=== PATIENT | female | born 1950 | race Caucasian/White ===

== ENCOUNTER → 2016-10-02 | Outpatient (CLI) | payer OTHER, MEDICAID | LOC: FIMAGING 14:13 | PROVIDERS: ATTEND Obstetrics & Gynecology | DX: D17.9 Benign lipomatous neoplasm, unspecified (principal) | CPT/HCPCS: 76641; G0204 ==

== ENCOUNTER → 2017-08-04 | Outpatient (CLI) | payer OTHER, MEDICAID | LOC: FIMAGING 15:30 | PROVIDERS: ATTEND Physician Assistant | DX: K57.30 Diverticulosis of large intestine without perforation or abscess without bleeding (principal); K21.9 Gastro-esophageal reflux disease without esophagitis; I25.10 Atherosclerotic heart disease of native coronary artery without angina pectoris ==

== ENCOUNTER 2018-05-19 16:42 | Inpatient (IN) | payer OTHER, MEDICAID ==
[2018-05-19] MEDS ORDERED: NS 500 ML IV ONE (16:51)
--- NOTE | 2018-05-19 16:57 | EDPHY ---
H & P Time Seen by Provider: 05/19/18 16:44 HPI/ROS: CHIEF COMPLAINT: Found down Limitations: The patient is unable to provide any clinical history, history is through EMS HISTORY OF PRESENT ILLNESS: 68 year old female presents after being found down. She was found down by a neighbor, stuck between her bed and the wall. On EMS arrival, she was face down on the floor, with a strong odor of ammonia in the room and feces all over her. Her oxygen cannula was off and was stuck in her hair. It appeared that she had fallen and hit an object on the wall during the fall. She thinks that she has been on the floor for 2 days. Bottles of OxyContin and multiple bottles of stool softeners found adjacent to the patient. Denies fever, cough or recent illness. REVIEW OF SYSTEMS: Unable to obtain - Personal History Tetanus Vaccine Date: < 10 years - Medical/Surgical History Hx Asthma: No Hx Chronic Respiratory Disease: No Hx Diabetes: No Hx Cardiac Disease: No Hx Renal Disease: No Hx Cirrhosis: No Hx Alcoholism: No Hx HIV/AIDS: No Hx Splenectomy or Spleen Trauma: No Other PMH: HX: B KNEE REPLACEMENT, RA, FEMUR FX, HYPOTHYROID, HEP + infection femur - Social History Smoking Status: Former smoker - Physical Exam Exam: General Appearance: Alert, answers some questions appropriately Eyes: Left periorbital ecchymosis, extending to the left the zygoma area, Pupils equal and round, left conjunctival injection and drainage ENT, Mouth: Mucous membranes somewhat dry Neck: Normal inspection Respiratory: Lungs are clear to auscultation anteriorly Cardiovascular: Regular rate and rhythm Gastrointestinal: Abdomen is soft and nontender Neurological: Alert, oriented to person and place, moves all extremities equally and is able to hold all extremities up against gravity, symmetric smile Skin: Warm and dry, feces on buttocks and extending down both legs Extremities: No swelling Psychiatric: Mood and affect normal Constitutional: Initial Vital Signs O2 Sat (%) 96 05/19/18 16:51 O2 Delivery Mode Nasal Cannula O2 (L/minute) 3 Allergies/Adverse Reactions: iv ct contrast Allergy (Uncoded 07/31/17 14:49) respiratory arrest Home Medications: Medication Instructions Recorded Adalimumab [Humira] 40 mg SQ PANCHAL 12/24/12 lamoTRIgine [LamICTAL 100 MG (*)] 100 mg PO BID@,12/24/12 Atorvastatin Calcium [Lipitor 20 20 mg PO HS@9903/13/13 mg (*)] Omeprazole 20 mg PO DAILY@03/13/13 busPIRone HCL [Buspar] 10 mg PO TID@,,03/13/13 Aspirin [Aspirin 81mg (*)] 81 mg PO DAILY@199908/24/13 Calcium Carbonate/Vitamin D3 1 each PO TID@,,08/24/13 [CALCIUM 600 + VIT D TABLET] Cholecalciferol (Vitamin D3) 2,000 unit PO DAILY@08/24/13 [Vitamin D3] LORazepam [Ativan (*)] 2 mg PO BID@,08/24/13 Levothyroxine [Synthroid 200 mcg 200 mcg PO DAILY@08/24/13 (*)] Levothyroxine [Synthroid 25 mcg 25 mcg PO DAILY@08/24/13 (*)] Losartan Potassium [Cozaar 50 mg 50 mg PO BID@,08/24/13 (*)] Metoprolol Succinate Xr [Toprol Xl 100 mg PO BID@,08/24/13 100 mg (*)] Multivitamins [Multivitamin (*)] 1 each PO DAILY@08/24/13 [place]-3/Dha/Epa/Fish Oil [OMEGA-3 3,600 mg PO DAILY@08/24/13 FISH OIL 1,200 MG SFGL] Polyethylene Glycol 3350 [Miralax 17 gm PO BID@,08/24/13 17 gm (*)] QUEtiapine FUMARATE [Seroquel 300 mg PO HS@9908/24/13 300mg (*)] QUEtiapine FUMARATE [Seroquel 450 mg PO DAILY@199908/24/13 300mg (*)] Sennosides/Docusate Sodium 3 tab PO BID@,08/24/13 [Senokot-S] Zolpidem Tartrate [Ambien 10 mg] 20 mg PO HS@9908/24/13 celeCOXIB [Celebrex (*)] 200 mg PO DAILY@08/24/13 oxyCODONE CR [Oxycontin] 20 mg PO QID@,,,08/24/13 oxyCODONE CR [Oxycontin] 80 mg PO QID@,,,20 08/24/13 oxyCODONE IR [Oxycodone Ir (*)] 45 mg PO QID@,,,20 08/24/13 Enoxaparin [Lovenox] 30 mg SC BID #30 syr 09/04/13 Medical Decision Making - Diagnostics EKG Interpretation: EKG interpreted by me reveals sinus tachycardia, rate 103, abnormal R-wave progression, no ST or T segment changes. Interpretation: Borderline EKG Imaging Results: Imaging Impressions Chest X-Ray 05/19/18 16:52 Impression: Left lower lobe subsegmental atelectasis. No acute cardiopulmonary process. Head CT 05/19/18 16:53 Impression: 1. There is no acute intracranial abnormality identified on this unenhanced CT evaluation. 2. Mild frontal scalp swelling, and left sandeep/infraorbital soft tissue swelling. 3. Suspect nondisplaced torus type fracture of the left nasal bone. If there is further clinical concern regarding the patient's symptoms, MR imaging is suggested, if not otherwise contraindicated. Findings were discussed with JACE LEDEZMA MD at 18:37, on 05/19/2018. Imaging: Discussed imaging studies w/ inbound call center agent Radiologist, I viewed and interpreted images myself ED Course/Re-evaluation: This patient presents after being found down. It appears that she has been down a significant amount of time, given subacute appearance to facial contusions and dried feces on her buttocks and legs. IV normal saline initiated on patient arrival, likely rhabdomyolysis. She was sent to CT scan of the head, which was unremarkable except for a possible nasal fracture. Stat EKG reveals no evidence of ischemia or dysrhythmia. However troponin is quite elevated at 0.24, concerning for acute coronary syndrome. I reassessed the patient and asked her again if she had any chest pain or shortness of breath, which she denied. Cath urinalysis consistent with UTI. A urine culture was sent and Rocephin 1 g IV given. Serial exams remained unchanged. Laboratory results reveal acute renal failure and mild rhabdomyolysis. IV fluids infusing. Patient is still unable to provide any clinical history. The hospitalist service was consulted for admission to PCU. Differential Diagnosis: Altered mental status including but not limited to hypoglycemia, infectious process, electrolyte abnormality, head injury, CVA, and intoxicants. - Data Points Laboratory Results: Laboratory Results 05/19/18 16:50 05/19/18 16:50 05/19/18 05/19/18 05/19/18 18:30 18:25 16:54 WBC RBC Hgb POC Hgb 17.7 gm/dL H gm/dL (12.6-16.3) Hct POC Hct 52 % H % (38-47) MCV MCH MCHC RDW Plt Count MPV Neut % (Auto) Lymph % (Auto) [place] % (Auto) Eos % (Auto) Baso % (Auto) Nucleat RBC Rel Count Absolute Neuts (auto) Absolute Lymphs (auto) Absolute Monos (auto) Absolute Eos (auto) Absolute Basos (auto) Absolute Nucleated RBC Immature Gran % Seg Neutrophils % Band Neutrophils % Lymphocytes % Monocytes % Eosinophils % Basophils % Metamyelocytes % Myelocytes % Promyelocytes % Blast Cells % Immature Gran # Absolute Seg Neuts Absolute Band Neuts Absolute Lymphocytes Absolute Monocytes Absolute Eosinophils Absolute Basophils Absolute Metamyelocyte Absolute Myelocytes Absolute Promyelocytes Absolute Plasma Cells Nucleated RBCs RBC/WBC/PLT Morphology Absolute Blast Cells Plasma Cells % Platelet Estimate PT INR APTT VBG Lactic Acid 1.8 mmol/L mmol/L (0.7-2.1) POC Sodium 154 mEq/L H mEq/L (135-145) Sodium POC Potassium 3.5 mEq/L mEq/L (3.3-5.0) Potassium POC Chloride 118 mEq/L H mEq/L (97-110) Chloride Carbon Dioxide POC Total CO2 23 mEq/L mEq/L (22-31) Anion Gap POC BUN 63 mg/dL H mg/dL (7-23) BUN Creatinine POC Creatinine 2.1 mg/dL H mg/dL (0.6-1.0) Estimated GFR Glucose POC Glucose 209 mg/dL H mg/dL (70-100) Calcium Creatine Kinase CK-MB (CK-2) Fraction CK-MB (CK-2) % Creatine Kinase Interp POC Troponin I Urine Color YUNIOR Urine Appearance MODERATELY TURBID Urine pH 5.0 (5.0-7.5) Ur Specific [place] 1.023 (1.002-1.030) Urine Protein 2+ H (NEGATIVE) Urine Ketones TRACE H (NEGATIVE) Urine Blood 1+ H (NEGATIVE) Urine Nitrate NEGATIVE (NEGATIVE) Urine Bilirubin NEGATIVE (NEGATIVE) Urine Urobilinogen 2.0 EU H EU (0.2-1.0) Ur Leukocyte Esterase 1+ H (NEGATIVE) Urine RBC 3-5 /hpf H /hpf (0-3) Urine WBC 10-15 /hpf H /hpf (0-3) Ur Epithelial Cells TRACE /lpf /lpf (NONE-1+) Urine Bacteria 4+ /hpf H /hpf (NONE SEEN) Hyaline Casts 50-182 /lpf H /lpf (0-1) Granular Casts 50-182 /lpf H /lpf (0-1) Urine Mucus 4+ /lpf H /lpf (NONE-1+) Urine Glucose NEGATIVE (NEGATIVE) 05/19/18 05/19/18 05/19/18 16:52 16:50 16:50 WBC RBC Hgb POC Hgb Hct POC Hct MCV MCH MCHC RDW Plt Count MPV Neut % (Auto) Lymph % (Auto) [place] % (Auto) Eos % (Auto) Baso % (Auto) Nucleat RBC Rel Count Absolute Neuts (auto) Absolute Lymphs (auto) Absolute Monos (auto) Absolute Eos (auto) Absolute Basos (auto) Absolute Nucleated RBC Immature Gran % Seg Neutrophils % Band Neutrophils % Lymphocytes % Monocytes % Eosinophils % Basophils % Metamyelocytes % Myelocytes % Promyelocytes % Blast Cells % Immature Gran # Absolute Seg Neuts Absolute Band Neuts Absolute Lymphocytes Absolute Monocytes Absolute Eosinophils Absolute Basophils Absolute Metamyelocyte Absolute Myelocytes Absolute Promyelocytes Absolute Plasma Cells Nucleated RBCs RBC/WBC/PLT Morphology Absolute Blast Cells Plasma Cells % Platelet Estimate PT INR APTT VBG Lactic Acid 2.5 mmol/L H mmol/L (0.7-2.1) POC Sodium Sodium 147 mEq/L H mEq/L (135-145) POC Potassium Potassium 3.6 mEq/L mEq/L (3.5-5.2) POC Chloride Chloride 113 mEq/L H mEq/L (97-110) Carbon Dioxide 21 mEq/l L mEq/l (22-31) POC Total CO2 Anion Gap 13 mEq/L mEq/L (6-14) POC BUN BUN 73 mg/dL H mg/dL (7-23) Creatinine 2.2 mg/dL H mg/dL (0.6-1.0) POC Creatinine Estimated GFR 22 Glucose 201 mg/dL H mg/dL (70-100) POC Glucose Calcium 10.0 mg/dL mg/dL (8.5-10.4) Creatine Kinase 1048 IU/L H IU/L (0-156) CK-MB (CK-2) Fraction 4.60 ng/mL H ng/mL (0.00-4.55) CK-MB (CK-2) % 0.4 % % (0.0-4.0) Creatine Kinase Interp NEGATIVE (NEGATIVE) POC Troponin I 0.24 ng/mL H ng/mL (0.00-0.08) Urine Color Urine Appearance Urine pH Ur Specific [place] Urine Protein Urine Ketones Urine Blood Urine Nitrate Urine Bilirubin Urine Urobilinogen Ur Leukocyte Esterase Urine RBC Urine WBC Ur Epithelial Cells Urine Bacteria Hyaline Casts Granular Casts Urine Mucus Urine Glucose 05/19/18 05/19/18 16:50 16:50 WBC 20.24 10^3/uL H 10^3/uL (3.80-9.50) RBC 5.48 10^6/uL H 10^6/uL (4.18-5.33) Hgb 17.0 g/dL H g/dL (12.6-16.3) POC Hgb Hct 51.8 % H % (38.0-47.0) POC Hct MCV 94.5 fL fL (81.5-99.8) MCH 31.0 pg pg (27.9-34.1) MCHC 32.8 g/dL g/dL (32.4-36.7) RDW 15.2 % % (11.5-15.2) Plt Count 341 10^3/uL 10^3/uL (150-400) MPV 11.5 fL fL (8.7-11.7) Neut % (Auto) Not Reported Lymph % (Auto) Not Reported [place] % (Auto) Not Reported Eos % (Auto) Not Reported Baso % (Auto) Not Reported Nucleat RBC Rel Count Not Reported Absolute Neuts (auto) Not Reported Absolute Lymphs (auto) Not Reported Absolute Monos (auto) Not Reported Absolute Eos (auto) Not Reported Absolute Basos (auto) Not Reported Absolute Nucleated RBC Not Reported Immature Gran % Not Reported Seg Neutrophils % 80.0 % % Band Neutrophils % 1.0 % % Lymphocytes % 7.0 % % Monocytes % 12.0 % % Eosinophils % 0.0 % % Basophils % 0.0 % % Metamyelocytes % 0.0 % % Myelocytes % 0.0 % % Promyelocytes % 0.0 % % Blast Cells % 0.0 % % Immature Gran # Not Reported Absolute Seg Neuts 16.19 10^3/uL H 10^3/uL (1.70-6.50) Absolute Band Neuts 0.20 10^3/uL 10^3/uL (0.00-0.70) Absolute Lymphocytes 1.42 10^3/uL 10^3/uL (1.00-3.00) Absolute Monocytes 2.43 10^3/uL H 10^3/uL (0.30-0.80) Absolute Eosinophils 0.00 10^3/uL L 10^3/uL (0.03-0.40) Absolute Basophils 0.00 10^3/uL L 10^3/uL (0.02-0.10) Absolute Metamyelocyte 0.00 10^3/mL 10^3/mL (0.00-0.00) Absolute Myelocytes 0.00 10^3/mL 10^3/mL (0.00-0.00) Absolute Promyelocytes 0.00 10^3/uL 10^3/uL (0.00-0.00) Absolute Plasma Cells 0.00 10^3/uL 10^3/uL (0.00-0.00) Nucleated RBCs 0 /100 WBC /100 WBC (0-0) RBC/WBC/PLT Morphology NORMAL (NORMAL) Absolute Blast Cells 0.00 10^3/uL 10^3/uL (0.00-0.00) Plasma Cells % 0.0 % % Platelet Estimate ADEQUATE (ADEQ) PT 13.8 SEC SEC (12.0-15.0) INR 1.04 (0.83-1.16) APTT 24.6 SEC SEC (23.0-38.0) VBG Lactic Acid POC Sodium Sodium POC Potassium Potassium POC Chloride Chloride Carbon Dioxide POC Total CO2 Anion Gap POC BUN BUN Creatinine POC Creatinine Estimated GFR Glucose POC Glucose Calcium Creatine Kinase CK-MB (CK-2) Fraction CK-MB (CK-2) % Creatine Kinase Interp POC Troponin I Urine Color Urine Appearance Urine pH Ur Specific [place] Urine Protein Urine Ketones Urine Blood Urine Nitrate Urine Bilirubin Urine Urobilinogen Ur Leukocyte Esterase Urine RBC Urine WBC Ur Epithelial Cells Urine Bacteria Hyaline Casts Granular Casts Urine Mucus Urine Glucose Medications Given: Sodium Chloride (Ns) 1,000 mls @ 100 mls/hr IV CONT KRISTAN Stop: 11/15/18 21:59 Last Admin: 05/19/18 22:28 Dose: 1,000 mls Discontinued Medications Aspirin (Aspirin) 324 mg PO EDNOW ONE Stop: 05/19/18 18:43 Last Admin: 05/19/18 18:49 Dose: 324 mg Sodium Chloride (Ns) 500 mls @ 1,000 mls/hr IV EDNOW ONE PRN Reason: Protocol Stop: 05/19/18 17:20 Last Admin: 05/19/18 17:00 Dose: 500 mls Sodium Chloride (Ns) 1,000 mls @ 0 mls/hr IV ONCE ONE; Wide Open PRN Reason: Protocol Stop: 05/19/18 18:02 Last Admin: 05/19/18 18:12 Dose: 1,000 mls Ceftriaxone Sodium/Dextrose (Rocephin 1 Gm (Premix)) 50 mls @ 100 mls/hr IV EDNOW ONE PRN Reason: Protocol Stop: 05/19/18 19:26 Last Admin: 05/19/18 19:09 Dose: 50 mls Point of Care Test Results: Chemistry 05/19/18 05/19/18 16:54 16:52 POC Sodium 154 mEq/L H mEq/L (135-145) POC Potassium 3.5 mEq/L mEq/L (3.3-5.0) POC Chloride 118 mEq/L H mEq/L (97-110) POC Total CO2 23 mEq/L mEq/L (22-31) POC BUN 63 mg/dL H mg/dL (7-23) POC Creatinine 2.1 mg/dL H mg/dL (0.6-1.0) POC Glucose 209 mg/dL H mg/dL (70-100) POC Troponin I 0.24 ng/mL H ng/mL (0.00-0.08) ISTAT H&H 05/19/18 16:54 POC Hgb 17.7 gm/dL H gm/dL (12.6-16.3) POC Hct 52 % H % (38-47) Departure - Departure Disposition: [facility] Inpatient Acute Clinical Impression: Urinary tract infection Qualifiers: Urinary tract infection type: acute cystitis Hematuria presence: without hematuria Qualified Code(s): N30.00 - Acute cystitis without hematuria Acute renal failure Qualifiers: Acute renal failure type: unspecified Qualified Code(s): N17.9 - Acute kidney failure, unspecified Rhabdomyolysis Qualifiers: Rhabdomyolysis type: traumatic Encounter type: initial encounter Qualified Code (s): T79.6XXA - Traumatic ischemia of muscle, initial encounter Condition: Serious
[2018-05-19 17:02] LABS: PLATELET COUNT 341 10^3/uL (150-400)
[2018-05-19 17:15] LABS: INR 1.04 (0.83-1.16); PROTIME(PATIENT) 13.8 SEC (12.0-15.0)
[2018-05-19 17:20] LABS: CREATINE KINASE 1048 IU/L (0-156)
[2018-05-19] MEDS ORDERED: NS 1,000 ML IV ONE (18:01)
[2018-05-19] MEDS ORDERED: ASPIRIN 81 MG CHEWABLE TAB PO ONE (18:42)
[2018-05-19] MEDS ORDERED: ONDANSETRON DISINTEGRATING 4 MG TAB PO PRN (21:54)
[2018-05-19] MEDS ORDERED: ONDANSETRON 4 MG/2 ML VIAL IVP PRN (21:54)
[2018-05-19] MEDS ORDERED: NS 1,000 ML IV SCH (22:00)
[2018-05-19] MEDS ORDERED: hydrALAZINE 20 MG/ML VIAL IVP PRN (22:01)
--- NOTE | 2018-05-19 22:03 | PDGENHP ---
History and Physical - Chief Complaint found down. - History of Present Illness 68-year-old female with past medical history of hypertension and chronic pain brought in by ambulance after being found down by her neighbor. The patient tells me that she thinks she was down for 2 or 3 days but cannot remember exactly. She is not exactly sure what happened but did say that she was too weak to get up. She is confused and unable to tell me where she is or what day it is or how she fell or really any details of exactly what happened. She is not sure if she hit her head. She continued to perseverate on the fact that her son came to her door and she was talking to him through the door but he would not break it down. She currently denies any abdominal pain or dysuria but does have some discomfort in her left eye. She denies a cough or any fevers or chills or diarrhea. History Information - Allergies/Home Medication List Allergies/Adverse Reactions: iv ct contrast Allergy (Uncoded 07/31/17 14:49) respiratory arrest Home Medications: Adalimumab [Humira] 40 mg SQ PANCHAL 12/24/12 [Last Taken 08/29/13] lamoTRIgine [LamICTAL 100 MG (*)] 100 mg PO BID@12/24/12 [Last Taken 08/29 20:00] Atorvastatin Calcium [Lipitor 20 mg (*)] 20 mg PO HS@9903/13/13 [Last Taken 08/29/13 20:00] Omeprazole 20 mg PO DAILY@03/13/13 [Last Taken 08/30/13 07:30] busPIRone HCL [Buspar] 10 mg PO TID@03/13/13 [Last Taken 08/29/13 20:00 ] Aspirin [Aspirin 81mg (*)] 81 mg PO DAILY@199908/24/13 [Last Taken 08/29/13] Calcium Carbonate/Vitamin D3 [CALCIUM 600 + VIT D TABLET] 1 each PO TID@08/24/13 [Last Taken 08/25/13] Cholecalciferol (Vitamin D3) [Vitamin D3] 2,000 unit PO DAILY@08/24/13 [Last Taken 08/25/13] LORazepam [Ativan (*)] 2 mg PO BID@08/24/13 [Last Taken 08/29/13 20:00] Levothyroxine [Synthroid 200 mcg (*)] 200 mcg PO DAILY@08/24/13 [Last Taken 08/29/13 07:30] Levothyroxine [Synthroid 25 mcg (*)] 25 mcg PO DAILY@08/24/13 [Last Taken 12/05 07:30] Losartan Potassium [Cozaar 50 mg (*)] 50 mg PO BID@08/24/13 [Last Taken 20:00] Metoprolol Succinate Xr [Toprol Xl 100 mg (*)] 100 mg PO BID@,08/24/13 [ Last Taken 08/29/13 20:00] Multivitamins [Multivitamin (*)] 1 each PO DAILY@08/24/13 [Last Taken ] Downing-3/Dha/Epa/Fish Oil [OMEGA-3 FISH OIL 1,200 MG SFGL] 3,600 mg PO DAILY@08/24/13 [Last Taken 08/25/13] Polyethylene Glycol 3350 [Miralax 17 gm (*)] 17 gm PO BID@08/24/13 [Last Taken 08/29/13 20:00] QUEtiapine FUMARATE [Seroquel 300mg (*)] 300 mg PO HS@9908/24/13 [Last Taken 08/30/13 00:30] QUEtiapine FUMARATE [Seroquel 300mg (*)] 450 mg PO DAILY@199908/24/13 [Last Taken 08/30/13 00:30] Sennosides/Docusate Sodium [Senokot-S] 3 tab PO BID@08/24/13 [Last Taken 08/29/13] Zolpidem Tartrate [Ambien 10 mg] 20 mg PO HS@9908/24/13 [Last Taken 08/30/13 00:00] celeCOXIB [Celebrex (*)] 200 mg PO DAILY@08/24/13 [Last Taken 08/29/13 20:00] oxyCODONE CR [Oxycontin] 20 mg PO QID@,,,08/24/13 [Last Taken 08/30/13 07:30] oxyCODONE CR [Oxycontin] 80 mg PO QID@,,,20 08/24/13 [Last Taken 08/30/13 07:30] oxyCODONE IR [Oxycodone Ir (*)] 45 mg PO QID@,,,20 08/24/13 [Last Taken 20:00] I have personally reviewed and updated: family history, medical history, social history, surgical history - Past Medical History Additional medical history: Hypertension insomnia chronic pain hyperlipidemia - Surgical History Additional surgical history: Knee replacement - Family History Positive for: non-pertinent - Social History Smoking Status: Former smoker Review of Systems Review of Systems: ROS: 10pt was reviewed & negative except for what was stated in HPI & below Physical Exam Physical Exam: Temp Pulse Resp BP Pulse Ox 36.9 C 91 1,595 H 172/91 H 2 L 05/19/18 21:09 05/19/18 21:09 05/19/18 21:09 05/19/18 21:09 05/19/18 21:09 O2 (L/minute) 3 Constitutional: unkempt Eyes: PERRL, other (Left eye ecchymosis and swelling.) Ears, Nose, Mouth, Throat: dry mucous membranes Cardiovascular: tachycardia Respiratory: no respiratory distress Gastrointestinal: normoactive bowel sounds, soft, non-tender abdomen, no palpable masses Genitourinary: ennis in urethra Skin: warm, normal color Musculoskeletal: generalized weakness Neurologic: other (Oriented to name and month.) Psychiatric: interacting appropriately, poor memory Lymph, Heme, Immunologic: no cervical LAD Lab Data & Imaging Review 05/19/18 16:50 05/19/18 16:50 WBC 20.24 10^3/uL (3.80-9.50) H 05/19/18 16:50 RBC 5.48 10^6/uL (4.18-5.33) H 05/19/18 16:50 Hgb 17.0 g/dL (12.6-16.3) H 05/19/18 16:50 POC Hgb 17.7 gm/dL (12.6-16.3) H 05/19/18 16:54 Hct 51.8 % (38.0-47.0) H 05/19/18 16:50 POC Hct 52 % (38-47) H 05/19/18 16:54 MCV 94.5 fL (81.5-99.8) 05/19/18 16:50 MCH 31.0 pg (27.9-34.1) 05/19/18 16:50 MCHC 32.8 g/dL (32.4-36.7) 05/19/18 16:50 RDW 15.2 % (11.5-15.2) 05/19/18 16:50 Plt Count 341 10^3/uL (150-400) 05/19/18 16:50 MPV 11.5 fL (8.7-11.7) 05/19/18 16:50 Neut % (Auto) Not Reported 05/19/18 16:50 Lymph % (Auto) Not Reported 05/19/18 16:50 Kane % (Auto) Not Reported 05/19/18 16:50 Eos % (Auto) Not Reported 05/19/18 16:50 Baso % (Auto) Not Reported 05/19/18 16:50 Nucleat RBC Rel Count Not Reported 05/19/18 16:50 Absolute Neuts (auto) Not Reported 05/19/18 16:50 Absolute Lymphs (auto) Not Reported 05/19/18 16:50 Absolute Monos (auto) Not Reported 05/19/18 16:50 Absolute Eos (auto) Not Reported 05/19/18 16:50 Absolute Basos (auto) Not Reported 05/19/18 16:50 Absolute Nucleated RBC Not Reported 05/19/18 16:50 Immature Gran % Not Reported 05/19/18 16:50 Seg Neutrophils % 80.0 % 05/19/18 16:50 Band Neutrophils % 1.0 % 05/19/18 16:50 Lymphocytes % 7.0 % 05/19/18 16:50 Monocytes % 12.0 % 05/19/18 16:50 Eosinophils % 0.0 % 05/19/18 16:50 Basophils % 0.0 % 05/19/18 16:50 Metamyelocytes % 0.0 % 05/19/18 16:50 Myelocytes % 0.0 % 05/19/18 16:50 Promyelocytes % 0.0 % 05/19/18 16:50 Blast Cells % 0.0 % 05/19/18 16:50 Immature Gran # Not Reported 05/19/18 16:50 Absolute Seg Neuts 16.19 10^3/uL (1.70-6.50) H 05/19/18 16:50 Absolute Band Neuts 0.20 10^3/uL (0.00-0.70) 05/19/18 16:50 Absolute Lymphocytes 1.42 10^3/uL (1.00-3.00) 05/19/18 16:50 Absolute Monocytes 2.43 10^3/uL (0.30-0.80) H 05/19/18 16:50 Absolute Eosinophils 0.00 10^3/uL (0.03-0.40) L 05/19/18 16:50 Absolute Basophils 0.00 10^3/uL (0.02-0.10) L 05/19/18 16:50 Absolute Metamyelocyte 0.00 10^3/mL (0.00-0.00) 05/19/18 16:50 Absolute Myelocytes 0.00 10^3/mL (0.00-0.00) 05/19/18 16:50 Absolute Promyelocytes 0.00 10^3/uL (0.00-0.00) 05/19/18 16:50 Absolute Plasma Cells 0.00 10^3/uL (0.00-0.00) 05/19/18 16:50 Nucleated RBCs 0 /100 WBC (0-0) 05/19/18 16:50 RBC/WBC/PLT Morphology NORMAL (NORMAL) 05/19/18 16:50 Absolute Blast Cells 0.00 10^3/uL (0.00-0.00) 05/19/18 16:50 Plasma Cells % 0.0 % 05/19/18 16:50 Platelet Estimate ADEQUATE (ADEQ) 05/19/18 16:50 PT 13.8 SEC (12.0-15.0) 05/19/18 16:50 INR 1.04 (0.83-1.16) 05/19/18 16:50 APTT 24.6 SEC (23.0-38.0) 05/19/18 16:50 VBG Lactic Acid 1.8 mmol/L (0.7-2.1) 05/19/18 18:25 POC Sodium 154 mEq/L (135-145) H 05/19/18 16:54 Sodium 147 mEq/L (135-145) H 05/19/18 16:50 POC Potassium 3.5 mEq/L (3.3-5.0) 05/19/18 16:54 Potassium 3.6 mEq/L (3.5-5.2) 05/19/18 16:50 POC Chloride 118 mEq/L (97-110) H 05/19/18 16:54 Chloride 113 mEq/L (97-110) H 05/19/18 16:50 Carbon Dioxide 21 mEq/l (22-31) L 05/19/18 16:50 POC Total CO2 23 mEq/L (22-31) 05/19/18 16:54 Anion Gap 13 mEq/L (6-14) 05/19/18 16:50 POC BUN 63 mg/dL (7-23) H 05/19/18 16:54 BUN 73 mg/dL (7-23) H 05/19/18 16:50 Creatinine 2.2 mg/dL (0.6-1.0) H 05/19/18 16:50 POC Creatinine 2.1 mg/dL (0.6-1.0) H 05/19/18 16:54 Estimated GFR 22 05/19/18 16:50 Glucose 201 mg/dL (70-100) H 05/19/18 16:50 POC Glucose 209 mg/dL (70-100) H 05/19/18 16:54 Calcium 10.0 mg/dL (8.5-10.4) 05/19/18 16:50 Creatine Kinase 1048 IU/L (0-156) H 05/19/18 16:50 CK-MB (CK-2) Fraction 4.60 ng/mL (0.00-4.55) H 05/19/18 16:50 CK-MB (CK-2) % 0.4 % (0.0-4.0) 05/19/18 16:50 Creatine Kinase Interp NEGATIVE (NEGATIVE) 05/19/18 16:50 POC Troponin I 0.24 ng/mL (0.00-0.08) H 05/19/18 16:52 Urine Color YUNIOR 05/19/18 18:30 Urine Appearance MODERATELY TURBID 05/19/18 18:30 Urine pH 5.0 (5.0-7.5) 05/19/18 18:30 Ur Specific Lynch 1.023 (1.002-1.030) 05/19/18 18:30 Urine Protein 2+ (NEGATIVE) H 05/19/18 18:30 Urine Ketones TRACE (NEGATIVE) H 05/19/18 18:30 Urine Blood 1+ (NEGATIVE) H 05/19/18 18:30 Urine Nitrate NEGATIVE (NEGATIVE) 05/19/18 18:30 Urine Bilirubin NEGATIVE (NEGATIVE) 05/19/18 18:30 Urine Urobilinogen 2.0 EU (0.2-1.0) H 05/19/18 18:30 Ur Leukocyte Esterase 1+ (NEGATIVE) H 05/19/18 18:30 Urine RBC 3-5 /hpf (0-3) H 05/19/18 18:30 Urine WBC 10-15 /hpf (0-3) H 05/19/18 18:30 Ur Epithelial Cells TRACE /lpf (NONE-1+) 05/19/18 18:30 Urine Bacteria 4+ /hpf (NONE SEEN) H 05/19/18 18:30 Hyaline Casts 50-182 /lpf (0-1) H 05/19/18 18:30 Granular Casts 50-182 /lpf (0-1) H 05/19/18 18:30 Urine Mucus 4+ /lpf (NONE-1+) H 05/19/18 18:30 Urine Glucose NEGATIVE (NEGATIVE) 05/19/18 18:30 Assessment & Plan Assessment: 68-year-old female with past medical history of chronic pain narcotic use hypertension hyperlipidemia and multiple other medical problems brought in by ambulance after being found down at her house for 2 days. Elevated troponin- EKG with a sinus tach but no acute ST or T-wave changes suggestive of ischemia. Her 1st troponin was 0.2. She is not complaining of any chest pain currently. Given aspirin in the ER -cycle troponins -monitor on telemetry -if troponins abruptly rise start heparin drip and consult Cardiology Weakness- patient found after being down for approximately 2 days per report. Etiology of her weakness may be multifactorial. Reviewing her chart she has a history of chronic pain and narcotic use along with other psychotropic medications. She is unable to tell me what medication she takes currently. Her urine is consistent with a urinary tract infection as well. CT head was unremarkable and chest x-ray with no acute abnormalities either. -treat underlying infection -treat electrolyte abnormalities -IV fluids -hold sedating medications -PT OT Hypernatremia- likely secondary to dehydration and poor oral intake for the last few days. She was given large boluses of normal saline in the ER. Will recheck metabolic panel now. Sodium 154 in the emergency room. Goal correction would be a points in 24 hr so 146 by tomorrow evening. Will start intravenous saline at 75 an hour for now and adjust as needed Encephalopathy- likely MAC multifactorial including dehydration electrolyte disturbance and it underlying infection. Minimize sedating medications treat underlying causes. BENJAMIN- to prerenal azotemia. Getting fluids recheck renal function in the morning Cystitis- urine consistent with infection. Treat with Rocephin and check urine cultures Hypertension- patient unsure of what medication she takes. Will add p.r.n. Hydralazine until her home medications can be confirmed. Prophylaxis- SCDs and heparin Fluids- intravenous saline Electrolytes- hyponatremic Nutrition- regular diet if she passes a swallow Cor-full Dispo-inpatient
[2018-05-19] MEDS ORDERED: D50W 25 GM/50 ML SYR IVP PRN (22:28)
--- NOTE | 2018-05-19 22:39 | CPEKG ---
Test Reason : OPEN Blood Pressure : / mmHG Vent. Rate : 103 BPM Atrial Rate : 103 BPM P-R Int : 111 ms QRS Dur : 077 ms QT Int : 364 ms P-R-T Axes : 024 007 049 degrees QTc Int : 477 ms Sinus tachycardia Abnormal R-wave progression, early transition Confirmed by Tami Ledezma ([id number]) on 05/19/2018 10:39:39 PM Referred By: TAMI LEDEZMA Confirmed By:Tami Ledezma
[2018-05-20] MEDS: ACETAMINOPHEN 325 MG TAB PO PRN (04:26)
[2018-05-20 04:45] LABS: PLATELET COUNT 264 10^3/uL (150-400)
[2018-05-20] MEDS: HEPARIN 5,000 UNIT/0.5 ML INJ SC SCH ×3 (05:01→21:58)
--- NOTE | 2018-05-20 07:54 | PDMN ---
Medical Necessity Medical necessity: Pt meets inpt criteria per MD order and MCG M-300, Urinary Tract Infection, A-2 days. 68 y/o found down by neighbor presented to ED w/ confusion and weakness, admitted w/UTI/cystitis, BENJAMIN (BUN/creatinine 73/2.2 on admit), rhabdo, encephalopathy, hypernatremia (Na 147 on admission, most recent 154), elevated troponins, and HTN (SBP consistently high through nt 160's to 199 , DBP 80's-100's). IVF, IV ABX's, IV Hydralazine, bl and urine cultures pending. Anticiapte>2MN for ongoing eval/management of above.
[2018-05-20] MEDS ORDERED: ENOXAPARIN 40 MG/0.4 ML SYR SC SCH (09:00)
[2018-05-20] MEDS: INSULIN LISPRO 100 UNIT/ML SC SCH ×3 (09:20→21:48)
[2018-05-20] MEDS ORDERED: 1/2 NS 1,000 ML IV SCH (10:30)
[2018-05-20] MEDS ORDERED: LEVOTHYROXINE 137 MCG TAB PO SCH (10:30)
[2018-05-20] MEDS ORDERED: LORazepam 1 MG TAB PO SCH (10:45)
[2018-05-20] MEDS: lamoTRIgine 100 MG TAB PO SCH ×2 (11:04→20:07)
[2018-05-20] MEDS: PANTOPRAZOLE SODIUM 40 MG TAB PO SCH (11:04)
[2018-05-20] MEDS: LEFLUNOMIDE 20 MG TAB PO SCH (11:05)
[2018-05-20 11:25] LABS: CREATINE KINASE 1537 IU/L (0-156)
[2018-05-20] MEDS: POLYETHYLENE GLYCOL 3350 17 GM PKT PO SCH ×3 (11:26→21:49)
--- NOTE | 2018-05-20 12:16 | ASMTCMCOM ---
CM Note CM Note Notes: Pt is a 68 yo F who was found down in her house. Pt thinks she was down for 2-3 days, surrounded with various medications/ substances. Pt is an unreliable historian at this time, she reports that she has a son named Tyrone, CM left message for him on his voicemail requesting call back. ([phone]). Pt reports she lives alone and doesn't have services in the area, per pt report. CM reviewed pt's chart and found out his PCP is Dr. Pancho Rod and that pt last saw him on 04/29/18. ([phone]; [address] [place] [address]. CM notified them pt was in hospital. [facility]. Pt will likely need substance abuse screening/resources once more medically stable and community linkages. CM to follow. Plan: TBD Date Signed: 05/20/2018 11:53 AM Electronically Signed By:MUSTAPHA Lawson
[2018-05-20] MEDS: LEVOTHYROXINE 200 MCG TAB PO SCH (12:27)
--- NOTE | 2018-05-20 13:23 | SOAPPROG ---
SOAP Progress Note Assessment/Plan: Assessment: Plan: 05/20/18 13:23 found down, now encephalopathic. Sodium level improving. ON ceftriaxone for UTI, changed to Invanz given ESBL hx chronic pain, baseline meds ordered, suspect withdrawal is adding to agitation benzodiazepine dependent--nl lorazepam is 1 mg 4/day, resume at TID 1 mg RA--Rituxin q 3 mo joint pain--worsened htn--resume amlodipine 5 mg daily along with metoprolol elevated CPK--likely to improve with fluids dehydration--fluids on board follow electolytes closely low potassium--replace Subjective: Paige was found down at her apartment last night. The details are quite limited and patient cannot currently fill in the gaps. She is worried and frustrated with acute confusion. She is hurting diffusely. No MALIK. No SOB. No CP. No n/v. Objective: Vital Signs Temp Pulse Resp BP Pulse Ox 37.0 C 85 19 182/92 H 97 05/20/18 12:06 05/20/18 12:06 05/20/18 12:06 05/20/18 12:06 05/20/18 12:06 Laboratory Results 05/20/18 03:46 05/20/18 11:00 05/19/18 05/20/18 05/21/18 05:59 05:59 05:59 Intake Total 3305 740 Output Total 900 Balance 2405 740 PT 13.8 SEC (12.0-15.0) 05/19/18 16:50 INR 1.04 (0.83-1.16) 05/19/18 16:50 Gen: alerted, knows me by facial expression, but cannot find my name. She is able to learn a new persons name. HEENT: blood in hair. Bruising to left jaw/cheek region. Lungs: CTAB Heart: RRR Tele sinus, no ST depression or elevation Abd + bs, soft NT ND Skin: some scattered abrasions (knees) Neuro: quite muddled. Follow commands. Can't name year, month or day. Can't name president. 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
[2018-05-20] MEDS ORDERED: POTASSIUM Cl (KCl) 20 MEQ in 1/2 NS 1,000 ML IV SCH (13:30)
[2018-05-20] MEDS: ERTAPENEM 1 GM in NS 100 ML IV SCH (14:35)
[2018-05-20] MEDS: ASPIRIN 81 MG CHEWABLE TAB PO SCH (14:55)
[2018-05-20] MEDS: LORazepam 1 MG TAB PO SCH ×2 (15:12→21:58)
[2018-05-20] MEDS: OMEGA-3 ETHYL EST-LOVAZA 1 GM CAP PO SCH (20:06)
[2018-05-20] MEDS: QUEtiapine FUMARATE 300 MG TAB PO SCH (20:06)
[2018-05-20] MEDS: METOPROLOL SUCCINATE XR 100 MG TAB PO SCH (20:07)
[2018-05-20] MEDS: NS W/ 20 KCl/L 1,000 ML IV SCH (21:58)
[2018-05-21] MEDS: HEPARIN 5,000 UNIT/0.5 ML INJ SC SCH ×3 (06:20→22:07)
[2018-05-21] MEDS: LEVOTHYROXINE 200 MCG TAB PO SCH (06:20)
[2018-05-21] MEDS: POLYETHYLENE GLYCOL 3350 17 GM PKT PO SCH ×4 (06:29→22:07)
[2018-05-21] MEDS: NS W/ 20 KCl/L 1,000 ML IV SCH ×2 (08:31→17:04)
[2018-05-21 09:27] LABS: PLATELET COUNT 169 10^3/uL (150-400)
--- NOTE | 2018-05-21 09:34 | SOAPPROG ---
SOAP Progress Note Assessment/Plan: Assessment: Plan: 05/20/18 13:23 found down, now encephalopathic. Sodium level improving. ON ceftriaxone for UTI, changed to Invanz given ESBL hx chronic pain, baseline meds ordered, suspect withdrawal is adding to agitation benzodiazepine dependent--nl lorazepam is 1 mg 4/day, resume at TID 1 mg RA--Rituxin q 3 mo joint pain--worsened htn--resume amlodipine 5 mg daily along with metoprolol elevated CPK--likely to improve with fluids dehydration--fluids on board follow electolytes closely low potassium--replace 05/21/18 09:49 Sodium has corrected. Potassium, chloride, BUN improving. Low Calcium-- ordered albumin. Oral calcium ordered. Confusion/Disoriented--improved since yesterday, still decreased from baseline. Order neuro consult. Continue working with T[employer]AR[employer]INE[employer], OT, PT UTI--On Invanz, awaiting final culture results. WBC decreasing. HTN--continue current regimen. BP has stabilized. Dehydration-- improving. Continue on fluids, continue monitoring electrolytes. Joint Pain-- improved, continue on home meds. T[employer] evaluation determined moderate/severe cognitive impairment. PT and OT evaluations concluded patient would most likely need inpatient acute rehab vs SNF. Subjective: Patient is laying in bed. She is confused and pulling at her gown. Speaking in partial sentences. States she is having difficulty seeing and recalling names. Denies any jaw pain or abdominal pain. She is concerned about her cognitive function. Objective: Vital Signs Temp Pulse Resp BP Pulse Ox 36.6 C 73 12 140/76 H 94 05/21/18 07:56 05/21/18 07:56 05/21/18 07:56 05/21/18 07:56 05/21/18 07:56 Laboratory Results 05/21/18 08:38 05/20/18 05/21/18 05/22/18 05:59 05:59 05:59 Intake Total 3305 4320 Output Total 900 500 Balance 2405 3820 PT 13.8 SEC (12.0-15.0) 05/19/18 16:50 INR 1.04 (0.83-1.16) 05/19/18 16:50 Gen: Less agitated, appears comfortable in no acute distress. Speaking in partial sentences. Recognizes my face and said my name. HEENT: Decreased vision, poor eye fixation and tracking. Bruising on left side of face improved. No pain with jaw movement. Lungs: CTAB, no chest wall tenderness. Respirating without difficulty Heart: Sinus rhythm, no murmurs or gallops Abdomen: Normal BS, no TTP, ND Neuro: Following commands, remains confused. Oriented to place, could not recall date, month, or year. She was able to recall my name, could not recall a visitors name. Could not answer how many fingers were being held up Labs: see above, improving. Urine culture results: pending. 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
[2018-05-21] MEDS: INSULIN LISPRO 100 UNIT/ML SC SCH ×3 (10:05→17:44)
[2018-05-21] MEDS: ERTAPENEM 1 GM in NS 100 ML IV SCH (10:31)
[2018-05-21 10:32] LABS: CREATINE KINASE 3114 IU/L (0-156)
[2018-05-21] MEDS: lamoTRIgine 100 MG TAB PO SCH ×2 (10:34→22:06)
[2018-05-21] MEDS: ASPIRIN 81 MG CHEWABLE TAB PO SCH (10:34)
[2018-05-21] MEDS: PANTOPRAZOLE SODIUM 40 MG TAB PO SCH (10:34)
[2018-05-21] MEDS: LEFLUNOMIDE 20 MG TAB PO SCH (10:35)
[2018-05-21] MEDS: QUEtiapine FUMARATE 300 MG TAB PO SCH ×2 (10:35→22:06)
[2018-05-21] MEDS: METOPROLOL SUCCINATE XR 100 MG TAB PO SCH ×2 (10:35→22:06)
[2018-05-21] MEDS: OMEGA-3 ETHYL EST-LOVAZA 1 GM CAP PO SCH ×2 (10:35→22:06)
[2018-05-21] MEDS: LORazepam 1 MG TAB PO SCH ×3 (10:35→22:07)
--- NOTE | 2018-05-21 12:51 | ASMTCMCOM ---
CM Note CM Note Notes: 05/21/2018 Case Management Note PT is recommending SNF rehab. Met w/pt to discuss. Pt agreeable to referrals. Faxed referrals to [facility], [facility], [facility], [facility], [facility] and [facility]. Left VM with MD practice requesting background info on pt living situation as pt appears to be unreliable historian today. Pt reports living alone. Pt appears mildly confused today, unable to track a conversation, requiring multiple repeat questions. Left for alexander Hansen at [phone] Case Management d/c poc: SNF rehab pending acceptance and auth Case Management to follow. Date Signed: 05/21/2018 12:50 PM Electronically Signed By:Dorothea Parish RN
--- NOTE | 2018-05-21 14:11 | ASMTCMCOM ---
CM Note CM Note Notes: CM completed triggered pasrr and sent it to Ariel Scott. CM spoke to Pancho Rod and he is hoping that she will d/c to inpatient rehab. He will put in inpatient rehab consult. Pancho confirmed that pt has a bipolar diagnosis. CM spoke to pts son Tyrone on the phone (P#: [phone]). He is opened to CM making referrals to SNFs. Tyrone reports that pt has acute anxiety and arthritis. CM to follow. Date Signed: 05/21/2018 02:08 PM Electronically Signed By:MUSTAPHA Lara
--- NOTE | 2018-05-21 14:22 | GCON ---
[f rep st] CONSULTATION NEUROLOGIC CONSULTATION REFERRING PHYSICIAN: Pancho Rod, PAC HISTORY: The patient is a 68-year-old woman who I am asked to see in neurologic consultation regardi ng altered mental state. She was found down and came to the hospital 2 days ago with some rhabdomyol ysis and has had altered mental status since that time. She has had imaging in the form of a head CT on May 19. No acute pathology identified. Over the last 48 hours, she has continued to have s ome confusion, although has gotten a little bit better in reviewing the reports from Pancho Rod. The patient says that she feels a little confused and is disorganized in her discussions, but chiloelvis royal says she does not feel right without being able to be very specific. PAST MEDICAL HISTORY: Notable for hypertension, some chronic pain, hyperlipidemia, history of knee r eplacement. FAMILY HISTORY: Unavailable. HOME MEDICATIONS: OxyContin, Seroquel, metoprolol, levothyroxine, lorazepam daily, lamotrigine, ceph alexin, Celebrex, BuSpar, and Lipitor. She was briefly off her lorazepam and is now back on 1 mg 3 times a day. Pancho Rod was a little concerned about possible withdrawal. LABORATORY DATA: The patient has had initial labs with a white count that was elevated, now down to 9000. It was 20,000 when she came in. Normal INR. Serum chemistries when she came in showed mild e levation of her creatinine at 1.6, which is coming down and BUN was elevated consistent with a dehydr ated state. CK of 1537. Otherwise, nothing very specific. Urinalysis suspicious for urinary tract infection. E coli seen on the urine culture. She is on ertapenem now. REVIEW OF SYSTEMS: Unremarkable, except for that noted above. PHYSICAL EXAM: VITAL SIGNS: Blood pressure 128/70, temperature 36.6, pulse of 80, respirations 15. GENERAL: She is overweight, lying in the bed in no acute distress. EYES: Clear. NECK: Supple wi th no bruits or masses. CARDIAC: Regular rate and rhythm. NEUROLOGIC: She has nonsustained concen tration and attention and make some statements that are logical and others that are not so much. She has a hard time with visual fixation, but could count my fingers and she could recognize and see my watch. Other times she has a hard time answering questions, which has raised the question is to whet her there is much visual loss, but nurses have said it is fairly inconsistent and she certainly can a t least see basic things. I cannot detect a visual field loss. The facial sensation seems to be pre served, as well as strength. Palate elevates symmetrically. Tongue protrudes midline. Motor exam i s unreliable for great detail, but about 4/5 in the upper extremities. Lower extremities are much we fariba in terms of the reliable testing and she was not even showing antigravity strength at the amrik ceps bilaterally. She can wiggle her toes, however, bilaterally. True degree of weakness is still h lindsay to say. She has bilateral Babinski signs. Sensation is unreliable, but she is recognizing touch . Initially, she felt perception to touch more in the right leg than the left, but that was also salma te inconsistent. IMPRESSION: Total unit time of 50 minutes. The patient has an acute encephalopathy in the setting o f an altered mental state and being found down for which we do not know the true cause. Whether she experienced a stroke, arrhythmia, encephalopathy from medications, or unwitnessed seizure phenomena i s all very hard to say right now. Head CT did not show an initial clear-cut lesion. It would be leonardo y helpful to have brain MRI, but she is too restless for that now. Hopefully once she gets calmer, w e can get that study if she does not return to her baseline. I am also finding some potential long t rack signs with bilateral Babinski signs for which I will monitor her progress, but this may also req uire some spinal imaging to rule out any spinal cord problems. With all of the different psychoactiv e medications, they may be contributing, and the fact that she is communicating partially and making some sense, and even able to make some jokes, suggest to me she is not an acute danger of a rapid det erioration, but we will simply monitor, and I informed Pancho Rod of that with a message. /[id number]/MODL
[2018-05-21] MEDS: CALCIUM CARBONATE 500 MG CHEWABLE TAB PO SCH ×2 (16:58→22:07)
[2018-05-22 04:15] LABS: PLATELET COUNT 141 10^3/uL (150-400)
[2018-05-22 04:41] LABS: CREATINE KINASE 2404 IU/L (0-156)
[2018-05-22] MEDS: HEPARIN 5,000 UNIT/0.5 ML INJ SC SCH ×3 (05:59→21:21)
[2018-05-22] MEDS: LEVOTHYROXINE 200 MCG TAB PO SCH (05:59)
[2018-05-22] MEDS: POLYETHYLENE GLYCOL 3350 17 GM PKT PO SCH ×4 (07:02→21:51)
[2018-05-22] MEDS: INSULIN LISPRO 100 UNIT/ML SC SCH ×2 (09:11→15:28)
[2018-05-22] MEDS: CALCIUM CARBONATE 500 MG CHEWABLE TAB PO SCH ×3 (09:12→21:21)
[2018-05-22] MEDS: lamoTRIgine 100 MG TAB PO SCH ×2 (09:12→21:22)
[2018-05-22] MEDS: LEFLUNOMIDE 20 MG TAB PO SCH (09:12)
[2018-05-22] MEDS: PANTOPRAZOLE SODIUM 40 MG TAB PO SCH (09:13)
[2018-05-22] MEDS: QUEtiapine FUMARATE 300 MG TAB PO SCH ×2 (09:13→21:23)
[2018-05-22] MEDS: ASPIRIN 81 MG CHEWABLE TAB PO SCH (09:13)
[2018-05-22] MEDS: LORazepam 1 MG TAB PO SCH ×3 (09:13→21:23)
[2018-05-22] MEDS: OMEGA-3 ETHYL EST-LOVAZA 1 GM CAP PO SCH ×2 (09:13→21:21)
[2018-05-22] MEDS: METOPROLOL SUCCINATE XR 100 MG TAB PO SCH ×2 (09:17→21:22)
--- NOTE | 2018-05-22 09:17 | NEUROPROG ---
Assessment: 25 min total unit time evaluating patient with a mildly improved encephalopathy at this point. There is not specific evidence for stroke. I am going to continue to observe clinically to see if she continues to improve but will still probably do 1 more follow-up imaging before discharge just to be sure no subtle stroke is missed. Ideally MRI would be appropriate but she is not in a state where we could keep her still enough for that. Subjective: He the patient is reporting feeling a little bit better and the nursing says that she was doing a little better during the night with a little more orientation and less complaints of visual changes. She tells me that she still says her vision isn't quite normal and she feels trouble understanding where she is. Objective: Vital Signs Temp Pulse Resp BP Pulse Ox 36.7 C 76 20 150/74 H 90 L 05/22/18 08:00 05/22/18 08:00 05/22/18 08:00 05/22/18 08:00 05/22/18 08:00 Laboratory Results 05/22/18 03:25 05/22/18 03:25 05/21/18 05/22/18 05/23/18 05:59 05:59 05:59 Intake Total 4320 2902 Output Total 500 175 Balance 3820 2727 PT 13.8 SEC (12.0-15.0) 05/19/18 16:50 INR 1.04 (0.83-1.16) 05/19/18 16:50 She is awake and able to communicate but mildly lethargic. She is a little more appropriate today than yesterday. She know she is in the hospital in [place] but she does not know the month or the year even though she tries to guess and does recognize that it is the winter. She does not complain of any particular focal numbness but says she hurts in multiple parts of her body. Mild headache. When testing the vision, she can still track my finger and name objects. I do not detect definite visual loss. Allergies/Adverse Reactions: iv ct contrast Allergy (Uncoded 07/31/17 14:49) respiratory arrest
[2018-05-22] MEDS ORDERED: ALTEPLASE 2 MG VIAL IVP PRN (14:21)
--- NOTE | 2018-05-22 16:47 | ASMTCMCOM ---
CM Note CM Note Notes: 05/22/2018 Case Management Note Pt son Tyrone here to visit. Provided referral list. Tyrone to visit SNFs and get back to case management. Pt needs auth prior to SNF rehab acceptance. Requested MDPOA paperwork from Tyrone. Left brochure in room for pt and son to discuss when pt is more clear. May require spritual care support to complete. Case Management d/c poc: to be determined pending family picking SNF and getting auth Case Management to follow. Date Signed: 05/22/2018 04:46 PM Electronically Signed By:Dorothea Parish RN
--- NOTE | 2018-05-22 17:14 | SOAPPROG ---
SOAP Progress Note Assessment/Plan: Assessment: Plan: 05/20/18 13:23 found down, now encephalopathic. Sodium level improving. ON ceftriaxone for UTI, changed to Invanz given ESBL hx chronic pain, baseline meds ordered, suspect withdrawal is adding to agitation benzodiazepine dependent--nl lorazepam is 1 mg 4/day, resume at TID 1 mg RA--Rituxin q 3 mo joint pain--worsened htn--resume amlodipine 5 mg daily along with metoprolol elevated CPK--likely to improve with fluids dehydration--fluids on board follow electolytes closely low potassium--replace 05/21/18 09:49 Sodium has corrected. Potassium, chloride, BUN improving. Low Calcium-- ordered albumin. Oral calcium ordered. Confusion/Disoriented--improved since yesterday, still decreased from baseline. Order neuro consult. Continue working with [facility], OT, PT UTI--On Invanz, awaiting final culture results. WBC decreasing. HTN--continue current regimen. BP has stabilized. Dehydration-- improving. Continue on fluids, continue monitoring electrolytes. Joint Pain-- improved, continue on home meds. [facility] evaluation determined moderate/severe cognitive impairment. PT and OT evaluations concluded patient would most likely need inpatient acute rehab vs SNF. 05/22/18 17:14 metabolic encephalopathy, with probable concussion/closed head injury, poss benzodiazepine w/d--stable with slow improvement rhabdomyolysis--CK reducing slowing UOP less--continue IVF's access--will need SL PICC HTN--improved dispo--ideally inpatient rehab Subjective: Paige is frustrated with her lack of clarity. She is more aware of her deficits. Vision is still frustrating. No significant headache. She admits to pain, somewhat diffusely. Objective: Vital Signs Temp Pulse Resp BP Pulse Ox 36.6 C 80 20 151/62 H 93 05/22/18 16:00 05/22/18 16:00 05/22/18 16:00 05/22/18 16:00 05/22/18 16:00 Laboratory Results 05/22/18 03:25 05/22/18 03:25 05/21/18 05/22/18 05/23/18 05:59 05:59 05:59 Intake Total 4320 2902 Output Total 500 175 Balance 3820 2727 PT 13.8 SEC (12.0-15.0) 05/19/18 16:50 INR 1.04 (0.83-1.16) 05/19/18 16:50 Gen: pleasant, attempts to follow commands HEENT: visual orientation is improved Lungs: diminished BS in bases Heart: RRR Abd + bs soft nt, nd LE's no edema Neuro: disorientation is less dense ICD10 Worksheet Patient Problems: Problems Problem Status Onset Acute renal failure Acute Rhabdomyolysis Acute Urinary tract infection Acute Hardware failure Acute 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
[2018-05-22] MEDS: ERTAPENEM 1 GM in NS 100 ML IV SCH (17:45)
[2018-05-22] MEDS: NS W/ 20 KCl/L 1,000 ML IV SCH (21:41)
[2018-05-23] MEDS: POLYETHYLENE GLYCOL 3350 17 GM PKT PO SCH ×4 (04:33→17:11)
[2018-05-23] MEDS: LEVOTHYROXINE 200 MCG TAB PO SCH (04:54)
[2018-05-23] MEDS: HEPARIN 5,000 UNIT/0.5 ML INJ SC SCH ×3 (04:54→22:58)
[2018-05-23 05:24] LABS: PLATELET COUNT 155 10^3/uL (150-400)
[2018-05-23] MEDS: NS W/ 20 KCl/L 1,000 ML IV SCH ×2 (08:00→18:12)
[2018-05-23] MEDS: LEFLUNOMIDE 20 MG TAB PO SCH (08:53)
[2018-05-23] MEDS: OMEGA-3 ETHYL EST-LOVAZA 1 GM CAP PO SCH ×2 (08:53→22:47)
[2018-05-23] MEDS: CALCIUM CARBONATE 500 MG CHEWABLE TAB PO SCH ×3 (08:54→22:53)
[2018-05-23] MEDS: LORazepam 1 MG TAB PO SCH ×3 (08:54→22:53)
[2018-05-23] MEDS: ASPIRIN 81 MG CHEWABLE TAB PO SCH (08:54)
[2018-05-23] MEDS: PANTOPRAZOLE SODIUM 40 MG TAB PO SCH (08:54)
[2018-05-23] MEDS: QUEtiapine FUMARATE 300 MG TAB PO SCH ×2 (08:54→22:55)
[2018-05-23] MEDS: lamoTRIgine 100 MG TAB PO SCH ×2 (08:54→22:54)
[2018-05-23] MEDS: METOPROLOL SUCCINATE XR 100 MG TAB PO SCH ×2 (08:54→22:47)
--- NOTE | 2018-05-23 10:17 | NEUROPROG ---
Assessment: 05/23/18: At this point, after a 25 min total unit time, I have not found anything very specific about her case other than the multifactorial contributing factors as previously outlined and uncertainty as to how much of a role some of the psychoactive medicines are playing or any withdrawal phenomenon. Stroke does not appear likely. I will sign off for now but please contact me if further neurologic input is needed. Subjective: This morning, the patient says that she is feeling about the same but perhaps a little better understanding of what happened. When I walked in the room and she was asleep but once I woke her up she could speak to me again as she did yesterday. She does not have any specific complaints right now but she still describes this sense of altered vision and trouble being a little bit disoriented. Objective: Vital Signs Temp Pulse Resp BP Pulse Ox 37.3 C 76 18 160/103 H 94 05/23/18 07:14 05/23/18 07:14 05/23/18 07:14 05/23/18 07:14 05/23/18 07:14 Laboratory Results 05/23/18 05:13 05/23/18 05:13 05/22/18 05/23/18 05/24/18 05:59 05:59 05:59 Intake Total 2902 1453 Output Total 175 250 Balance 2727 1453 -250 PT 13.8 SEC (12.0-15.0) 05/19/18 16:50 INR 1.04 (0.83-1.16) 05/19/18 16:50 She is lethargic after I woke her from a nap but her orientation is that she recognizes being in [facility] but she can't tell me the month or the year. She can follow commands and perform simple calculations and she can spell. She can name objects. The extraocular movements are intact. Her concentration and attention are diminished in sometimes she falls back asleep and closes her eyes. She can then easily be aroused again to pay more attention. She is a little disorganized in her thinking but not agitated. She does not have much insight about what happens but she does remember being on the bed at home and then the next thing she knows she "collapsed". The facial bruising is healing. She has some generalized weakness without any clear asymmetry of strength other than seeming to have a little more slow movement in the right arm compared to the left. That was inconsistent, however. Allergies/Adverse Reactions: iv ct contrast Allergy (Uncoded 07/31/17 14:49) respiratory arrest
--- NOTE | 2018-05-23 12:01 | SOAPPROG ---
SOAP Progress Note Assessment/Plan: Assessment: Doing better. Slow improvement in cognition. Plan:A couple more days on antibiotics then determine disposition early next wweek. 05/23/18 12:00 Subjective: Awakens easily. When asked, suggested that today was Friday (instead of Friday). Knew that Pancho Rod was her doctor. Thanked me for caring about her. Knew that her brain was fogy. Objective: Vital Signs Temp Pulse Resp BP Pulse Ox 99.1 F 76 18 160/103 H 94 05/23/18 07:14 05/23/18 07:14 05/23/18 07:14 05/23/18 07:14 05/23/18 07:14 Laboratory Results 05/23/18 05:13 05/23/18 05:13 05/22/18 05/23/18 05/24/18 05:59 05:59 05:59 Intake Total 2902 1453 Output Total 175 250 Balance 2727 1453 -250 PT 13.8 SEC (12.0-15.0) 05/19/18 16:50 INR 1.04 (0.83-1.16) 05/19/18 16:50 Annunciates words clearly. Answers questions, accurately or with stating that she doesn't know. Is not confabulating answers. 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
--- NOTE | 2018-05-23 13:36 | ASMTCMCOM ---
CM Note CM Note Notes: CM spoke to PT who reported that Inpatient rehab has been recommended for pt and that they are currently reviewing pt's records. D/C Plan: SNF vs Inpatient Rehab Date Signed: 05/23/2018 01:36 PM Electronically Signed By:Camila Liu
[2018-05-23] MEDS: PIPERACILLIN/TAZO 3.375 GM/DEX 50 ML IV SCH (17:05)
[2018-05-23] MEDS ORDERED: ERTAPENEM 1 GM in NS 100 ML IV SCH (18:00)
[2018-05-24] MEDS: PIPERACILLIN/TAZO 3.375 GM/DEX 50 ML IV SCH ×5 (00:13→21:35)
[2018-05-24] MEDS: POLYETHYLENE GLYCOL 3350 17 GM PKT PO SCH ×5 (00:37→21:33)
[2018-05-24] MEDS: LEVOTHYROXINE 200 MCG TAB PO SCH (06:19)
[2018-05-24] MEDS: HEPARIN 5,000 UNIT/0.5 ML INJ SC SCH ×3 (06:20→21:35)
[2018-05-24] MEDS: NS W/ 20 KCl/L 1,000 ML IV SCH (06:32)
[2018-05-24] MEDS: LORazepam 1 MG TAB PO SCH ×3 (08:23→21:29)
[2018-05-24] MEDS: METOPROLOL SUCCINATE XR 100 MG TAB PO SCH ×2 (08:23→21:31)
[2018-05-24] MEDS: QUEtiapine FUMARATE 300 MG TAB PO SCH ×2 (08:23→21:32)
[2018-05-24] MEDS: LEFLUNOMIDE 20 MG TAB PO SCH (08:23)
[2018-05-24] MEDS: ASPIRIN 81 MG CHEWABLE TAB PO SCH (08:23)
[2018-05-24] MEDS: PANTOPRAZOLE SODIUM 40 MG TAB PO SCH (08:23)
[2018-05-24] MEDS: lamoTRIgine 100 MG TAB PO SCH ×2 (08:23→21:29)
[2018-05-24] MEDS: CALCIUM CARBONATE 500 MG CHEWABLE TAB PO SCH ×3 (08:24→21:29)
[2018-05-24] MEDS: OMEGA-3 ETHYL EST-LOVAZA 1 GM CAP PO SCH ×2 (08:24→21:29)
[2018-05-24 09:17] LABS: CREATINE KINASE 1058 IU/L (0-156)
--- NOTE | 2018-05-24 11:04 | SOAPPROG ---
SOAP Progress Note Assessment/Plan: Assessment: 68 yo female w/ AMS s/p fall w/ UTI esbl -neuro has been seeing pt, apprec input, have signed off for now, no cva, metabolic encephalopathy. Elecv Cr from crush injury w/ fall improving, rechecked this am and has dropped significantly. Will change fluids to LR at 125 cc/hr, is taking oral po fluids well now. Continues to have confusion, had date as Fri, can't recall President, but recognized me, knew name of her pcp, knew she was at [facility], recognized friends in room and knew their names. Tried calling son, Tyrone, and left him a message. Will likely need inpt rehab vs snf, awaiting assessment. -UTI ESBL - changed from ertapenem to pip/olu, culture sensitivities good for this, today is day 4+ of treatment. -htn - bp has been running high, increased amlodipine from 2.5 to 5, cont metoprolol. -dvt proph -agitation - pupled out PICC last night, is picking at things, required sitter last night. Likely will need sitter again if gets agitated vs mittens, concern w / accidentally harming self w/ confusion. -dispo - likely rehab vs snf. Plan: 05/24/18 10:58 05/24/18 11:11 Subjective: Doing a bit better but still confused, trying hard to remember, talking more details about falling onto a table when she fell Objective: Vital Signs Temp Pulse Resp BP Pulse Ox 36.6 C 78 20 85/68 L 95 05/24/18 08:00 05/24/18 08:00 05/24/18 08:00 05/24/18 10:18 05/24/18 08:00 Laboratory Results 05/23/18 05:13 05/23/18 05:13 05/23/18 05/24/18 05/25/18 05:59 05:59 05:59 Intake Total 1453 2500 Output Total 1350 Balance 1453 1150 PT 13.8 SEC (12.0-15.0) 05/19/18 16:50 INR 1.04 (0.83-1.16) 05/19/18 16:50 CK improved to 1100 GEN: Hair disheveled more than usual, arouses easily, smiles, appropriate interactions but can't remember things and admits to confusion but feels it is less today than it has been, oriented to place not date, can't recall President. 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
[2018-05-24] MEDS: LR 1,000 ML IV SCH ×2 (13:54→23:54)
[2018-05-25] MEDS: PIPERACILLIN/TAZO 3.375 GM/DEX 50 ML IV SCH ×4 (03:54→20:27)
[2018-05-25] MEDS: HEPARIN 5,000 UNIT/0.5 ML INJ SC SCH ×3 (06:27→20:28)
[2018-05-25] MEDS: LEVOTHYROXINE 200 MCG TAB PO SCH (06:27)
[2018-05-25] MEDS: POLYETHYLENE GLYCOL 3350 17 GM PKT PO SCH ×5 (06:30→20:27)
[2018-05-25] MEDS: LEFLUNOMIDE 20 MG TAB PO SCH (08:07)
[2018-05-25] MEDS: CALCIUM CARBONATE 500 MG CHEWABLE TAB PO SCH ×3 (08:07→20:26)
[2018-05-25] MEDS: lamoTRIgine 100 MG TAB PO SCH ×2 (08:07→20:26)
[2018-05-25] MEDS: LORazepam 1 MG TAB PO SCH ×3 (08:07→20:26)
[2018-05-25] MEDS: OMEGA-3 ETHYL EST-LOVAZA 1 GM CAP PO SCH ×2 (08:07→20:25)
[2018-05-25] MEDS: QUEtiapine FUMARATE 300 MG TAB PO SCH ×2 (08:08→20:25)
[2018-05-25] MEDS: PANTOPRAZOLE SODIUM 40 MG TAB PO SCH (08:08)
[2018-05-25] MEDS: ASPIRIN 81 MG CHEWABLE TAB PO SCH (08:08)
[2018-05-25] MEDS: METOPROLOL SUCCINATE XR 100 MG TAB PO SCH ×2 (08:08→20:27)
[2018-05-25] MEDS ORDERED: amLODIPine BESYLATE 5 MG TAB PO SCH (09:00)
--- NOTE | 2018-05-25 10:20 | ASMTCMCOM ---
CM Note CM Note Notes: 05/25/2018 Case Management Note Returned message to alexander Hansen [phone]. Inpatient rehab has declined pt. Tyrone carly Godinez in [place]. Faxed updates and requested auth. Case Management d/c poc: [facility] Case Management to follow. Date Signed: 05/25/2018 10:20 AM Electronically Signed By:Dorothea Parish RN
--- NOTE | 2018-05-25 12:06 | SOAPPROG ---
SOAP Progress Note Assessment/Plan: Assessment: 68 yo female w/ AMS s/p closed head injury w/ fall c/b UTI esbl -AMS s/p closed head injury initially w/ metabolic abnl's as well, now corrected , neuro has seen pt and feels this is likely not cva and is 2/2 injury and possibly meds contributing. Would like to get MRI as soon as Paige is able to do this - concerned still she may not be able to hold still in MRI. She is thinking more clearly today to some degree but still not close to her baseline. PT/OT following and have recommended inpt rehab vs snf - she has been denied from inpt rehab here, but accepted in place in [place] when ready. -UTI ESBL - changed from ertapenem to pip/olu, culture sensitivities good for this, today is day 5.5 of treatment, will need one more day likely to complete course, is on pip/olu w/ good sensitivities on cx for this. (Changed from invanz ) -htn - cont on increased dose amlodipine and metoprolol. Will increase amlodipine to 10 mg. Historically had needed additional agents but then bp of late has been lower at PCP's. If not improved w/ increased amlodipine will add in additional agent. -dvt proph w/ hep sq -agitation - less so now, is feeling better a bit. -dispo - skilled facility in [place] has accepted Paige when she is ready. Plan: 05/24/18 10:58 05/24/18 11:11 05/25/18 12:58 05/25/18 13:07 Subjective: Doing ok, didn't sleep well last night, is on commode at time of visit Objective: Vital Signs Temp Pulse Resp BP Pulse Ox 36.7 C 85 15 178/86 H 95 05/25/18 07:17 05/25/18 08:35 05/25/18 07:17 05/25/18 08:35 05/25/18 08:35 Laboratory Results 05/23/18 05:13 05/25/18 03:25 05/24/18 05/25/18 05/26/18 05:59 05:59 05:59 Intake Total 2500 5545 700 Output Total 2103 936 7936 Balance 1150 4845 -500 PT 13.8 SEC (12.0-15.0) 05/19/18 16:50 INR 1.04 (0.83-1.16) 05/19/18 16:50 GEN: unkempt hair, makes eye contact appropriately, tries hard to answer all questions as able to, takes a while to do tasks asked w/ redirection needed HEENT: large ecchymoses on L side of face and lac on forehead w/ dressing in place Neck: soft/supple Chest: cta b CV: rrr ABD: soft nt nd + bs Ext: trace edema, lac to R knee ICD10 Worksheet Patient Problems: Problems Problem Status Onset Acute renal failure Acute Rhabdomyolysis Acute Urinary tract infection Acute Hardware failure Acute 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
[2018-05-25] MEDS ORDERED: amLODIPine BESYLATE 5 MG TAB PO ONE (15:15)
[2018-05-26] MEDS: LEVOTHYROXINE 200 MCG TAB PO SCH (05:34)
[2018-05-26] MEDS: PIPERACILLIN/TAZO 3.375 GM/DEX 50 ML IV SCH ×4 (05:34→21:12)
[2018-05-26] MEDS: POLYETHYLENE GLYCOL 3350 17 GM PKT PO SCH ×4 (05:35→22:00)
[2018-05-26] MEDS: HEPARIN 5,000 UNIT/0.5 ML INJ SC SCH ×3 (05:35→20:07)
[2018-05-26] MEDS: METOPROLOL SUCCINATE XR 100 MG TAB PO SCH ×2 (08:51→20:09)
[2018-05-26] MEDS: ASPIRIN 81 MG CHEWABLE TAB PO SCH (08:51)
[2018-05-26] MEDS: CALCIUM CARBONATE 500 MG CHEWABLE TAB PO SCH ×3 (08:52→20:09)
[2018-05-26] MEDS: LORazepam 1 MG TAB PO SCH ×3 (08:52→20:08)
[2018-05-26] MEDS: lamoTRIgine 100 MG TAB PO SCH ×2 (08:52→20:09)
[2018-05-26] MEDS: PANTOPRAZOLE SODIUM 40 MG TAB PO SCH (08:52)
[2018-05-26] MEDS: QUEtiapine FUMARATE 300 MG TAB PO SCH ×2 (08:52→20:08)
[2018-05-26] MEDS: LEFLUNOMIDE 20 MG TAB PO SCH (08:53)
[2018-05-26] MEDS: OMEGA-3 ETHYL EST-LOVAZA 1 GM CAP PO SCH ×2 (08:56→20:09)
[2018-05-26] MEDS ORDERED: oxyCODONE IR 5 MG TAB PO PRN (09:20)
--- NOTE | 2018-05-26 09:24 | SOAPPROG ---
SOAP Progress Note Assessment/Plan: Assessment: Plan: 05/20/18 13:23 found down, now encephalopathic. Sodium level improving. ON ceftriaxone for UTI, changed to Invanz given ESBL hx chronic pain, baseline meds ordered, suspect withdrawal is adding to agitation benzodiazepine dependent--nl lorazepam is 1 mg 4/day, resume at TID 1 mg RA--Rituxin q 3 mo joint pain--worsened htn--resume amlodipine 5 mg daily along with metoprolol elevated CPK--likely to improve with fluids dehydration--fluids on board follow electolytes closely low potassium--replace 05/21/18 09:49 Sodium has corrected. Potassium, chloride, BUN improving. Low Calcium-- ordered albumin. Oral calcium ordered. Confusion/Disoriented--improved since yesterday, still decreased from baseline. Order neuro consult. Continue working with [facility], OT, PT UTI--On Invanz, awaiting final culture results. WBC decreasing. HTN--continue current regimen. BP has stabilized. Dehydration-- improving. Continue on fluids, continue monitoring electrolytes. Joint Pain-- improved, continue on home meds. [facility] evaluation determined moderate/severe cognitive impairment. PT and OT evaluations concluded patient would most likely need inpatient acute rehab vs SNF. 05/22/18 17:14 metabolic encephalopathy, with probable concussion/closed head injury, poss benzodiazepine w/d--stable with slow improvement rhabdomyolysis--CK reducing slowing UOP less--continue IVF's access--will need SL PICC HTN--improved dispo--ideally inpatient rehab 05/26/18 09:25 suspected head injury, metabolic derangement has resolved, how much urosepsis, head trauma, vs possible seizure activity from benzo withdrawal all contribute it unclear. Paige thinks she could sit for an MRI today with some adjunctive pain management, will try today. Anticipate transfer to SNF Rehab potentially even today, pending results Subjective: Larry has had a sense of improved clarity from yesterday to today. She recalls more of the incident where she felt extremely weak while sitting on the couch at home and listed to the side. She recalls being so weak she couldn't move. She states she did not have her meds (lorazepam and oxycontin) during the protracted event which may have lasted 2-4 days. She doesn't clearly recall the injury to her head. She recalls the ambulance being at her house. Much of the hospital stay is muddled. Objective: Vital Signs Temp Pulse Resp BP Pulse Ox 36.8 C 80 16 186/98 H 92 05/26/18 08:00 05/26/18 08:00 05/26/18 08:00 05/26/18 08:00 05/26/18 05:30 Laboratory Results 05/23/18 05:13 05/25/18 03:25 05/25/18 05/26/18 05/27/18 05:59 05:59 05:59 Intake Total 5545 1350 Output Total 700 4300 Balance 4845 -2950 PT 13.8 SEC (12.0-15.0) 05/19/18 16:50 INR 1.04 (0.83-1.16) 05/19/18 16:50 Gen: Vastly sharper, makes normal conversational eye contact HEENT: trauma bruises are improving. 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
[2018-05-26] MEDS ORDERED: GADOBUTROL 10 ML VIAL IVP ONE (14:47)
[2018-05-26] MEDS ORDERED: hydrALAZINE 10 MG TAB PO PRN (18:29)
[2018-05-27] MEDS: PIPERACILLIN/TAZO 3.375 GM/DEX 50 ML IV SCH ×4 (04:03→22:34)
[2018-05-27] MEDS: POLYETHYLENE GLYCOL 3350 17 GM PKT PO SCH ×4 (05:45→22:13)
[2018-05-27] MEDS: HEPARIN 5,000 UNIT/0.5 ML INJ SC SCH ×3 (05:45→22:11)
[2018-05-27] MEDS: LEVOTHYROXINE 200 MCG TAB PO SCH (05:45)
[2018-05-27] MEDS: OMEGA-3 ETHYL EST-LOVAZA 1 GM CAP PO SCH ×2 (09:10→22:11)
[2018-05-27] MEDS: LOSARTAN POTASSIUM 25 MG TAB PO SCH ×2 (09:11→22:11)
[2018-05-27] MEDS: LORazepam 1 MG TAB PO SCH ×3 (09:11→22:11)
[2018-05-27] MEDS: LEFLUNOMIDE 20 MG TAB PO SCH (09:11)
[2018-05-27] MEDS: lamoTRIgine 100 MG TAB PO SCH ×2 (09:11→22:11)
[2018-05-27] MEDS: CALCIUM CARBONATE 500 MG CHEWABLE TAB PO SCH ×3 (09:11→22:12)
[2018-05-27] MEDS: ASPIRIN 81 MG CHEWABLE TAB PO SCH (09:12)
[2018-05-27] MEDS: PANTOPRAZOLE SODIUM 40 MG TAB PO SCH (09:12)
[2018-05-27] MEDS: QUEtiapine FUMARATE 300 MG TAB PO SCH ×2 (09:12→22:12)
[2018-05-27] MEDS: METOPROLOL SUCCINATE XR 100 MG TAB PO SCH ×2 (09:12→22:11)
[2018-05-27 09:13] LABS: PLATELET COUNT 254 10^3/uL (150-400)
--- NOTE | 2018-05-27 14:28 | ECHO ---
[email or web address] [address] [address] Main: [phone] Echocardiography Examination Transthoracic Name: GUILLERMO EGAN MR#: [id number] Study Date: 05/26/2018 Study Time: 06:26 PM Date of : 1950 Age: 68 year(s) Height: 175.3 cm (69 in.) Weight: 91.17 kg (201 lb.) BSA: 2.07 m2 Gender: Female Examination: Echo Indication: s/p multiple infarcts Image Quality: Adequate Contrast: Requested by: ?? BP: 172 mmHg/88 mmHg Heart Rate: 77 bpm Rhythm: Indication: s/p multiple infarcts Procedure Staff Referring Physician: Package Handler: Shireen Dodd [facility] Reading Physician: Pancho Marquez MD Requesting Provider: Indication: s/p multiple infarcts Measurements Chambers AV/MV Label Value Normal Value Label Value Normal Value EF lower range (%) 55 % AV Opening, MM 2.1 cm EF upper range (%) 60 % AV PGmean 5 mmHg IVSd, 2D 1.3 cm (0.6cm - 1.1cm) ADAMARIS D (continuity eq. 1.8 cm2 LVDd, 2D 4.4 cm (3.9cm - 5.3cm) VTI) LVDs, 2D 2.9 cm (2.1cm - 4cm) MV A Vmax 0.8 m/s LVEF, 2D 63 % (54% - 74%) MV DT 215 ms LVEF, BP 67 % (55% - 70%) MV E' lateral 0.09 m/s LVEF, MOD2 68 % (55% - 70%) MV E' mean 0.08 m/s LVEF, MOD4 66 % (55% - 70%) MV E' septal 0.06 m/s LVOT PGmean 2 mmHg MV E Vmax 0.72 m/s LVOT Vmean 0.75 m/s MV E/A 0.9 LVOTd 2 cm (1.8cm - 2cm) MV E/E' lateral 7.6 LVPWd, 2D 1.3 cm MV E/E' mean 9.6 RVDd, 2D 3.5 cm (1.9cm - 3.8cm) MV E/E' septal 11.9 (0.45 - 1.25) LA Area, A2C 19.4 cm2 (0cm2 - 20cm2) MV PGmax 4 mmHg LA Volume, A2C 60 ml (22ml - 52ml) MV PGmean 2 mmHg LADs, 2D 4.1 cm (2.7cm - 3.8cm) MV PHT 0.06 s Additional Vessels MV PHT 63 ms Label Value Normal Value MV VTI 23.4 cm Patient: GUILLERMO EGAN Study Date: 05/26/2018 Page 1 of 3 06:26 PM AoAsc 3.5 cm MVA D (continuity eq.) 2.5 cm2 AoRoot, 2D 3.2 cm (1.4cm - 2.6cm) MVA PHT 3.5 cm2 IVC 1.8 cm (1.2cm - 2.3cm) TV/PV Label Value Normal Value RA Pressure 5 mmHg RVSP 27 mmHg TR Pmax 22 mmHg TR Vmax 2.33 m/s PV PGmax 2 mmHg PV Vmax, Caliper 0.77 m/s (0.6m/s - 0.9m/s) Conclusions Left Ventricle: Left ventricle is normal in size. Normal global systolic left ventricular function. EF range is estimated at 55 % - 60 %. There is mild concentric left ventricular hypertrophy. Left Atrium: The left atrium is mildly dilated. Mitral Valve: Mitral valve appears structurally normal. Mild mitral regurgitation. Aortic Valve: Aortic leaflets exhibit normal cuspal separation. Trivial aortic regurgitation is present. There is no aortic stenosis. Tricuspid Valve Measurements Right Ventricular systolic pressure is measured at 27 mmHg. Aorta: The ascending aorta measures 3.5 cm. Findings Left Ventricle: Left ventricle is normal in size. Normal global systolic left ventricular function. EF evaluated by visual assessment. EF range is estimated at 55 % - 60 %. There is mild concentric left ventricular hypertrophy. There is no regional wall motion abnormalities. Left ventricular diastolic function parameters are normal. IVS: The septum is intact. Right Ventricle: Normal size right ventricle. Right ventricular wall thickness is normal. Right ventricular systolic function is normal. Pulmonary artery pressure normal. Left Atrium: The left atrium is mildly dilated. Right Atrium: The right atrium is normal in size. Mitral Valve: Patient: GUILLERMO EGAN Study Date: 05/26/2018 Page 2 of 3 06:26 PM Mitral valve appears structurally normal. Mild mitral regurgitation. No mitral valve stenosis. Aortic Valve: Aortic leaflets exhibit normal cuspal separation. Trivial aortic regurgitation is present. There is no aortic stenosis. Aortic sclerosis is present Tricuspid Valve: Tricuspid valve leaflets are normal in appearance and function. Mild tricuspid regurgitation. No tricuspid valve stenosis. Tricuspid Valve Measurements Right Ventricular systolic pressure is measured at 27 mmHg. Pulmonic Valve: Pulmonic leaflets exhibit normal cuspal separation. No pulmonic valve regurgitation is evident. There is no pulmonic valve stenosis. Aorta: The aorta is normal. The aortic root size in 2D measures 3.2 cm. The ascending aorta measures 3.5 cm. Aorta Measurements AoRoot, 2D is 3.2 cm. Pulmonary Artery: The pulmonary artery morphology appears normal. IVC: The inferior vena cava is normal in size. The inferior vena cava is normal in size and course. Pericardium: No pericardial effusion. No pleural effusion present. Exam Details Procedure Ordered: Echo Procedure Components: Complete 2D imaging Procedure Status: Routine study Image Quality: Adequate Facility Location: Cardiac Echo 1 (No Signature Object) Patient: GUILLERMO EGAN Study Date: 05/26/2018 Page 3 of 3 06:26 PM [id number]
[2018-05-27] MEDS: ACETAMINOPHEN 325 MG TAB PO PRN (21:14)
[2018-05-28] MEDS: PIPERACILLIN/TAZO 3.375 GM/DEX 50 ML IV SCH (03:41)
[2018-05-28] MEDS: POLYETHYLENE GLYCOL 3350 17 GM PKT PO SCH (05:11)
[2018-05-28] MEDS: LEVOTHYROXINE 200 MCG TAB PO SCH (06:03)
[2018-05-28] MEDS: HEPARIN 5,000 UNIT/0.5 ML INJ SC SCH (06:03)
[2018-05-28 07:26] VITALS: BP 163/85
--- NOTE | 2018-05-28 08:53 | SOAPPROG ---
SOAP Progress Note Assessment/Plan: Assessment: Plan: 05/20/18 13:23 found down, now encephalopathic. Sodium level improving. ON ceftriaxone for UTI, changed to Invanz given ESBL hx chronic pain, baseline meds ordered, suspect withdrawal is adding to agitation benzodiazepine dependent--nl lorazepam is 1 mg 4/day, resume at TID 1 mg RA--Rituxin q 3 mo joint pain--worsened htn--resume amlodipine 5 mg daily along with metoprolol elevated CPK--likely to improve with fluids dehydration--fluids on board follow electolytes closely low potassium--replace 05/21/18 09:49 Sodium has corrected. Potassium, chloride, BUN improving. Low Calcium-- ordered albumin. Oral calcium ordered. Confusion/Disoriented--improved since yesterday, still decreased from baseline. Order neuro consult. Continue working with DRAWBRIDGE OPERATOR, OT, PT UTI--On Invanz, awaiting final culture results. WBC decreasing. HTN--continue current regimen. BP has stabilized. Dehydration-- improving. Continue on fluids, continue monitoring electrolytes. Joint Pain-- improved, continue on home meds. DRAWBRIDGE OPERATOR evaluation determined moderate/severe cognitive impairment. PT and OT evaluations concluded patient would most likely need inpatient acute rehab vs SNF. 05/22/18 17:14 metabolic encephalopathy, with probable concussion/closed head injury, poss benzodiazepine w/d--stable with slow improvement rhabdomyolysis--CK reducing slowing UOP less--continue IVF's access--will need SL PICC HTN--improved dispo--ideally inpatient rehab 05/26/18 09:25 suspected head injury, metabolic derangement has resolved, how much urosepsis, head trauma, vs possible seizure activity from benzo withdrawal all contribute it unclear. Paige thinks she could sit for an MRI today with some adjunctive pain management, will try today. Anticipate transfer to SNF Rehab potentially even today, pending results Subjective: Paige fell with assistance last night. She hit her head and bottom per her description. No persistent headache. She is otherwise ok. She understands the situation. Objective: Vital Signs Temp Pulse Resp BP Pulse Ox 36.6 C 73 18 163/85 H 96 05/28/18 07:26 05/28/18 07:26 05/28/18 07:26 05/28/18 07:26 05/28/18 07:26 Laboratory Results 05/27/18 09:03 05/27/18 09:03 05/27/18 05/28/18 05/29/18 05:59 05:59 05:59 Intake Total 1610 1740 Output Total 1650 2725 Balance -40 -985 PT 13.8 SEC (12.0-15.0) 05/19/18 16:50 INR 1.04 (0.83-1.16) 05/19/18 16:50 Gen: NAD, mildly flustered today Lungs: CTAB Heart: RRR Abd + bs soft LE's no edema labs stable Echo: nl Carotids: nl Discussed MRI with neuro. 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
--- NOTE | 2018-05-28 08:59 | PDIAF ---
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 PICC Care - Routine: N/A - Orders Services needed: Registered Nurse, Physical Therapy, Occupational Therapy, Speech Language Pathologist Isolation Type: Contact Isolation Diet Recommendation: no restrictions on diet Diet Texture: Regular Texture Diet Weigh Patient: weekly Nuñez: No - Labs/Radiology BMP Date: 06/04/18 CBC w/diff Date: 06/04/18 Other Lab Name, Date and Time: TSH please draw on 06/28/2018 Call or Fax Lab and Imaging Results to: fax labs to [phone] - Follow Up Care Current Providers and Referrals: Patient,NotPresent [Unknown] - As per Instructions Juan Manuel Powers MD [Medical Doctor] -
[2018-05-28] MEDS ORDERED: ENOXAPARIN 40 MG/0.4 ML SYR SC SCH (09:00)
[2018-05-28] MEDS: METOPROLOL SUCCINATE XR 100 MG TAB PO SCH (09:27)
[2018-05-28] MEDS: OMEGA-3 ETHYL EST-LOVAZA 1 GM CAP PO SCH (09:27)
[2018-05-28] MEDS: LOSARTAN POTASSIUM 25 MG TAB PO SCH (09:27)
[2018-05-28] MEDS: LORazepam 1 MG TAB PO SCH (09:27)
[2018-05-28] MEDS: LEFLUNOMIDE 20 MG TAB PO SCH (09:27)
[2018-05-28] MEDS: PANTOPRAZOLE SODIUM 40 MG TAB PO SCH (09:28)
[2018-05-28] MEDS: CALCIUM CARBONATE 500 MG CHEWABLE TAB PO SCH (09:28)
[2018-05-28] MEDS: QUEtiapine FUMARATE 300 MG TAB PO SCH (09:28)
[2018-05-28] MEDS: ASPIRIN 81 MG CHEWABLE TAB PO SCH (09:28)
[2018-05-28] MEDS: lamoTRIgine 100 MG TAB PO SCH (09:28)
--- NOTE | 2018-05-28 10:03 | NEUROPROG ---
Assessment: [id number] - Neurology Consult: - CC: F/U for stroke - HPI: Please see Dr. Armstrong previous consult notes from 05/21/18 to 05/23/18. I initially saw the patient on 05/28/18. Pt with PMHx of chronic pain on narcotics brought to [facility] on 05/19/18 after she was found down. Pt felt she was down for 2- 3 days due to generalized weakness. She was confused on admission. She had low sodium and a suspected UTI on admission. Pt also on exterminator benzodiazepine. On 05/26/18 pt had a brain MRI wwo which showed subacute infarcts involving bilateral parietal lobes, bilateral occipital lobes, and right cerebellar hemisphere. Carotid U/S showed no carotid stenosis > 50% and TTE showed no cause for stroke. No afib noted on telemetry. LDL was 139 and H1AC was 5.8. The stroke may be involved with her confusion. Given distribution of stroke in bilateral posterior circulation and the fact that the patient had admission blood pressure of 183/106 and Cr of 2.2 makes me believe she likely had PRES from acute renal injury to cause her stroke. Pt was not on an aspirin prior to admission but it has now been added at admission. Recommend increasing atorvastatin 20 mg qd for LDL goal < 70. PT/OT/Speech to determine rehab needs and f/u with Dr. Couch after hospital discharge. - PMHx: HTN, HLD, chronic pain, knee replacement - SHx: former smoker FHx: NC - ROS: Pt denied acute fever, total vision loss, active severe chest pain, respiratory failure, total body severe rash, total bowel/bladder incontinence, psychosis, active seizures, or active bleeding - Labs: 05/27/18- H1AC 5.8, LDL 139 - Rads: 05/26/18- Carotid U/S: Mild atherosclerotic disease bilateral carotid bulbs. Velocities correlate to less than 50% diameter stenosis of the origin of the right or left internal carotid artery. Bilateral vertebral arteries are patent with antegrade flow. - 05/26/18- Brain MRI wwo: Subacute infarcts involving bilateral parietal lobes, bilateral occipital lobes, and right cerebellar hemisphere, with restricted diffusion and bilateral parieto-occipital cortical enhancement. No hydrocephalus, midline shift, or epidural/subdural hematomas. - 05/26/18- TTE: EF 55-60%, no thrombus reported - Assessment: 1. Stroke - Plan: - PT/OT/Speech to determine rehab needs - Change aspirin to 81 mg qd on discharge and continue this dose for life to prevent strokes - Increase atorvastatin 20 mg to 40 mg qd with LDL goal < 70 (139) - H1AC goal < 7.0 (5.8) - Blood pressure < 140/90 - F/U with Dr. Couch after hospital discharge - 35 min spent with patient, majority of time spent counseling on her symptoms and diagnostic plan Objective: Vital Signs Temp Pulse Resp BP Pulse Ox 36.6 C 73 18 163/85 H 96 05/28/18 07:26 05/28/18 07:26 05/28/18 07:26 05/28/18 07:26 05/28/18 07:26 Laboratory Results 05/27/18 09:03 05/27/18 09:03 05/27/18 05/28/18 05/29/18 05:59 05:59 05:59 Intake Total 1610 1740 Output Total 1650 2725 Balance -40 -985 PT 13.8 SEC (12.0-15.0) 05/19/18 16:50 INR 1.04 (0.83-1.16) 05/19/18 16:50 Allergies/Adverse Reactions: iv ct contrast Allergy (Uncoded 07/31/17 14:49) respiratory arrest
--- NOTE | 2018-05-28 10:08 | ASMTLACE ---
LACE Length of stay for Answers: 7-13 days current admission Acuity / Level of Answers: Yes Care: Did the patient have an inpatient admission? Comorbidities - select Answers: Opioid dependence all that apply / Chronic pain Other Notes: HTN; HLD # of Emergency department Answers: 1-2 visits in the last 6 months Score: 14 Date Signed: 05/28/2018 10:07 AM Electronically Signed By:Dorothea Parish RN
--- NOTE | 2018-05-28 10:11 | ASMTDCNOTE ---
Case Management Discharge Discharge Order Complete? Answers: Yes Patient to Obtain Answers: Other Notes: [facility] in [place] Medications Transportation Arranged Answers: Other Notes: [facility] Transport will Pick (Date 05/28/2018 12:00 PM & Time) Faxed Final Orders Answers: Yes Notes: to [facility] Agency/Facility Transfer Answers: Yes Notes: to [facility] Report Printed & Faxed to Receiving Agency Family Notified Answers: Yes Notes: left VM with Tyrone (son) Discharge Comments Notes: 05/28/2018 Case Management Note Faxed final orders to [facility] in [place]. Chelle arranged transport. Notified RN of berry picker machine operator and RN report number. Referred to [facility]. Left VM for Angely to assess pt at [facility]. Left VM for son Tyrone notifying of d/c to [facility] and referral to [facility]. Case Management d/c poc: [facility] rehab in [place] Date Signed: 05/28/2018 10:10 AM Electronically Signed By:Dorothea Parish RN
--- NOTE | 2018-05-28 10:11 | ASDISCHSUM ---
Discharge Information Plan Status:SNF Medically Cleared to Leave: Discharge Date: D/C Disposition:[facility] Facility [facility] D/C Disposition:[facility] Facility Projected Discharge Date:05/22/2018 11:00 AM Transportation at D/C:Wheelchair Van Discharge Delay Reason: Follow-Up Date:05/22/2018 11:00 AM Discharge Slot: Final Diagnosis: Placement Information Referral Type:*Halfway/SNF Referral ID:[id number] Provider Name:Herbert li [place] Address 1:[address] Address 2: City:[place] Selection Factors: State:[place] Patient Contact Information Contact Name:MARCELA Relationship:Son Address: Work Phone: City: [facility] Phone: [facility] Code: Email: Financial Information Financial Class:Medicare Advantage Plans Primary Plan Desc:[facility] Primary Plan Number:[id number] Secondary Plan Desc:[employer] Secondary Plan Number:[id number] Assessment Information LACE LACE Length of stay for Answers: 7-13 days current admission Acuity / Level of Answers: Yes Care: Did the patient have an inpatient admission? Comorbidities - select Answers: Opioid dependence all that apply / Chronic pain Other Notes: HTN; HLD # of Emergency department Answers: 1-2 visits in the last 6 months Score: 14 Date Signed: 05/28/2018 10:07 AM Electronically Signed By:Dorothea Parish RN [facility] VIRGILIO Progress Note CM Ming POOLE Note Notes: Pt is a 68 yo F who was found down in her house. Pt thinks she was down for 2-3 days, surrounded with various medications/ substances. Pt is an unreliable historian at this time, she reports that she has a son named Tyrone, CM left message for him on his voicemail requesting call back. ([phone]). Pt reports she lives alone and doesn't have services in the area, per pt report. CM reviewed pt's chart and found out his PCP is Dr. Pancho Rod and that pt last saw him on 04/29/18. ([phone]; [address] [place] [address]. CM notified them pt was in hospital. CM submit [facility] referral. Pt will likely need substance abuse screening/resources once more medically stable and community linkages. CM to follow. Plan: TBD Date Signed: 05/20/2018 11:53 AM Electronically Signed By:MUSTAPHA Lawson [facility] CM Progress Note CM Note CM Note Notes: 05/21/2018 Case Management Note PT is recommending SNF rehab. Met w/pt to discuss. Pt agreeable to referrals. Faxed referrals to [facility], [facility], [facility], [facility], [facility] and [facility]. Left VM with MD practice requesting background info on pt living situation as pt appears to be unreliable historian today. Pt reports living alone. Pt appears mildly confused today, unable to track a conversation, requiring multiple repeat questions. Left VM for son Tyrone at [phone] Case Management d/c poc: SNF rehab pending acceptance and auth Case Management to follow. Date Signed: 05/21/2018 12:50 PM Electronically Signed By:Dorothea Parish RN [facility] CM Progress Note CM Note CM Note Notes: VIRGILIO completed triggered pasrr and sent it to Ariel Scott. CM spoke to Pancho Rod and he is hoping that she will d/c to inpatient rehab. He will put in inpatient rehab consult. Pancho confirmed that pt has a bipolar diagnosis. CM spoke to pts son Tyrone on the phone (P#: [phone]). He is opened to making referrals to SNFs. Tyrone reports that pt has acute anxiety and arthritis. CM to follow. Date Signed: 05/21/2018 02:08 PM Electronically Signed By:MUSTAPHA Lara [facility] Progress Note CM Note CM Note Notes: 05/22/2018 Case Management Note Pt son Tyrone here to visit. Provided referral list. Tyrone to visit SNFs and get back to case management. Pt needs auth prior to SNF rehab acceptance. Requested [facility] paperwork from Tyrone. Left brochure in room for pt and son to discuss when pt is more clear. May require spritual care support to complete. Case Management d/c poc: to be determined pending family picking SNF and getting auth Case Management to follow. Date Signed: 05/22/2018 04:46 PM Electronically Signed By:Dorothea Parish RN [facility] Progress Note CM Note CM Note Notes: CM spoke to PT who reported that Inpatient rehab has been recommended for pt and that they are currently reviewing pt's records. D/C Plan: SNF vs Inpatient Rehab Date Signed: 05/23/2018 01:36 PM Electronically Signed By:Camila Liu [facility] CM Progress Note CM Note CM Note Notes: 05/25/2018 Case Management Note Returned message to alexander Hansen [phone]. Inpatient rehab has declined pt. Tyrone picked [facility] in [place]. Faxed updates and requested auth. Case Management d/c poc: [facility] SNF re[facility] Case Management to follow. Date Signed: 05/25/2018 10:20 AM Electronically Signed By:Dorothea Parish RN Case Management Discharge Plan Note Case Management Discharge Discharge Order Complete? Answers: Yes Patient to Obtain Answers: Other Notes: [facility] in [place] Medications Transportation Arranged Answers: Other Notes: Chelle arranged [place] w/c transport Transport will Pick (Date 05/28/2018 12:00 PM & Time) Faxed Final Orders Answers: Yes Notes: to [facility] Agency/Facility Transfer Answers: Yes Notes: to [facility] Report Printed & Faxed to Receiving Agency Family Notified Answers: Yes Notes: left VM with Tyrone (son) Discharge Comments Notes: 05/28/2018 Case Management Note Faxed final orders to [facility] in [place]. Chelle arranged transport. Notified RN of picker tender helper and RN report number. Referred to [facility]. Left VM for Angely to assess pt at [facility]. Left VM for son Tyrone notifying of d/c to [facility] and referral to [facility]. Case Management d/c poc: [facility] SNF rehab in [place] Date Signed: 05/28/2018 10:10 AM Electronically Signed By:Dorothea Parish RN Intervention Information Intervention Type:IM-Pt. Not Available Date of Service:05/22/2018 02:53 PM Patient Type:Inpatient Staff Member:Elise Carson Hours: Discipline: Severity: Comment:Attempted to meet with patient to disc uss the Medicare Important Message form, however, patient appeared to be non-decisional at the time. I left her a copy of the form.
--- NOTE | 2018-05-30 16:23 | GDS ---
[f rep st] DISCHARGE SUMMARY REASON FOR ADMISSION: Found down with encephalopathy. HOSPITAL COURSE: The patient was found by EMS down in her apartment. She was estimated to have been down at least 48 hours, if not potentially 72 hours or more. She was brought to the ER without any ability to share her history. She had multiple tests performed in the ER to assess overall clinical picture. She was found to have elevated sodium, elevated creatinine, a normal CT head with age-relat ed changes and severe confusion. She ultimately was admitted by the hospitalist. Her care was trans ferred to us. During her hospital stay, profound encephalopathy was noted. This was thought to be a mixed picture due to metabolic issues, potential medication issues and then brain injury. When she was able to sit for her brain MRI, it was found that she had significant injury to the posterior comp onent of her brain with subacute infarcts involving her occipital, cerebellar, and somewhat parietal lobe involvement. The potential for CREST syndrome was brought up by the radiologist as well as Dr. Norton. Her blood pressure control was improved by gradual titration of her medications. She did impr ove significantly when it came to her ability to interact socially. Her visual deficits have remaine d to be at least moderate. Overall ambulatory challenges that are also fairly significant, given pro chhaya, but lack of ability to return to home, she is transferred to senior care at [facility]. There is some concern for the potential of carbon monoxide poisoning contributing to her curren t scenario. Having this assessed at her apartment prior to returning will be adamant. Her blood pre ssure control should be targeted for a systolic pressure of around 120 systolic. She has had a resum ption of losartan. Her metoprolol is being continued and her amlodipine has been resumed and maximiz ed. She has underlying chronic pain. This medication dose has been stable with OxyContin. She has been dependent on long-term benzodiazepine use, baseline total daily dose 4 mg daily. She is current ly on 1 mg three times daily and seeming to do fairly well. Her underlying psychotropics have been c ontinued. Underlying bipolar has been stable. Her son, Tyrone Tamez has been quite involved in supp orting her care and will be an advocate for her in the future. She is anticipated to switch to skill ed nursing facility, hopefully, she will receive continued therapy with blood pressure control and ti me and is felt she will make significant progress. She will be seen in our clinic as an outpatient w casper she is able to do so. /[id number]/MODL
== END 2018-05-28 12:18 | DRG 64 ==
LOC: EDUNIT# → F2W 20:57
PROVIDERS: ADMIT Internal Medicine; ATTEND Internal Medicine
PROC: 02H633Z Insertion of Infusion Device into Right Atrium, Percutaneous Approach (ICD-10-PCS; principal; 2018-05-22)
DX: I63.9 Cerebral infarction, unspecified (principal); G93.41 Metabolic encephalopathy; N39.0 Urinary tract infection, site not specified; B96.20 Unspecified Escherichia coli [E. coli] as the cause of diseases classified elsewhere; N17.9 Acute kidney failure, unspecified; E87.0 Hyperosmolality and hypernatremia; E86.0 Dehydration; F11.23 Opioid dependence with withdrawal; S06.0X9A Concussion with loss of consciousness of unspecified duration, initial encounter; M62.82 Rhabdomyolysis; M06.9 Rheumatoid arthritis, unspecified; E03.9 Hypothyroidism, unspecified; I10 Essential (primary) hypertension; G89.29 Other chronic pain; E78.5 Hyperlipidemia, unspecified; W19.XXXA Unspecified fall, initial encounter; Y92.013 Bedroom of single-family (private) house as the place of occurrence of the external cause; Z96.653 Presence of artificial knee joint, bilateral; Z87.891 Personal history of nicotine dependence
CPT/HCPCS: 82435-PO; 82565-PO; 82947-PO; 84132-PO; 84295-PO; 84484-ER; 84520-PO; 85014-ER; 92507-GN; 92523-GN; 96365; 97112-GP; 97116-GP; 97163-GP; 97167-GO; 97530-GO; 97530-GP; 97535-GO; A9585; C1751; G0515-GO; J0360; J0696; J1335; J1644; J1650; J1815; J2543; J3480